=== PATIENT | female | born 2000 | race Caucasian/White ===

== ENCOUNTER → 2023-03-05 | Outpatient (CLI) | payer BC, SELFPAY ==
[2023-03-05 10:18] LABS: hCG Titer Quant., Serum 263 mIU/mL (1-3)
== END | disposition home or self-care (01) ==
LOC: PAVLAB 09:22
PROVIDERS: Referring Provider Obstetrics & Gynecology; Visit Provider Obstetrics & Gynecology
DX: O26.859 Spotting complicating pregnancy, unspecified trimester (principal)
CPT/HCPCS: 36415; 84702; 86850; 86900; 86901

== ENCOUNTER → 2023-03-07 | Outpatient (CLI) | payer BC, SELFPAY ==
[2023-03-07 08:51] LABS: hCG Titer Quant., Serum 589 mIU/mL (1-3)
== END | disposition home or self-care (01) ==
LOC: LAB 07:00
PROVIDERS: PCP Internal Medicine; Referring Provider Obstetrics & Gynecology; Visit Provider Obstetrics & Gynecology
DX: O26.859 Spotting complicating pregnancy, unspecified trimester (principal)
CPT/HCPCS: 36415; 84702

== ENCOUNTER → 2023-04-03 | Outpatient (CLI) | payer BC, SELFPAY | END | disposition home or self-care (01) | LOC: LABSPEC 14:36 | PROVIDERS: PCP Internal Medicine; Referring Provider Advanced Practice Midwife; Visit Provider Advanced Practice Midwife | DX: O09.90 Supervision of high risk pregnancy, unspecified, unspecified trimester (principal); Z3A.00 Weeks of gestation of pregnancy not specified ==

== ENCOUNTER → 2023-04-11 | Outpatient (CLI) | payer BC, SELFPAY ==
[2023-04-11 12:46] LABS: Absolute Lymphocyte Count 1.94 X10^3/uL (0.83-4.51); Absolute Neutrophil Count 6.4 X10^3/uL (2.0-7.7); Basophil# 0.03 X10^3/uL; Basophil% 0.3 % (0-1); Eosinophils% 1.1 % (0-5); Hematocrit 37.8 % (37-47); Hemoglobin 12.2 g/dL (12.0-15.0); Lymphocyte # 1.94 X10^3/ul (0.83-4.51); Lymphocyte % 21.2 % (19-41); Mean Corp Hgb Conc 32.3 g/dL (32-36); Mean Corpuscular Hgb 29.6 pg (27.0-32.0); Mean Corpuscular Volume 91.7 fL (81-99); Mean Platelet Vol. 9.6 fl (6.2-12.0); Monocyte# 0.65 X10^3/uL; Monocyte% 7.1 % (0-10); NRBC Flagged by Analyzer 0 % (0-5); Neutrophil % 69.9 % (47-70); Platelet Count 270 K/mm3 (150-450); RBC Distribution Width CV 13.2 % (11.6-14.6); RBC Distribution Width SD 44.4 fl (35.1-43.9); Red Blood Count 4.12 M/mm3 (4.2-5.4); White Blood Count 9.2 K/mm3 (4.4-11.0)
[2023-04-11 13:02] LABS: Glucose Challenge Gest 1H 50g 130 mg/dL (70-140)
[2023-04-11 13:48] LABS: HIV - WCH Non-Reactive (Nonreactive); Hepatitis B Surface Antigen Non-Reactive (Nonreactive); Hepatitis C Antibody Non-Reactive (Nonreactive); Rubella IgG Reactive (Nonreactive); Syphilis Antibodies Non-reactive
== END | disposition home or self-care (01) ==
LOC: LAB 12:02
PROVIDERS: PCP Internal Medicine; Referring Provider Advanced Practice Midwife; Visit Provider Advanced Practice Midwife
DX: O09.90 Supervision of high risk pregnancy, unspecified, unspecified trimester (principal); Z3A.00 Weeks of gestation of pregnancy not specified
CPT/HCPCS: 82950; 85025; 86703; 86762; 86780; 86803; 86850; 86900; 86901; 87340

== ENCOUNTER → 2023-05-01 | Outpatient (CLI) | payer SELFPAY ==
[2023-05-01 11:32] LABS: NATERA MAILED SPECIMEN
[2023-05-04 06:09] LABS: Chlamydia By Nucleic Acid AMP Negative (Negative); Gonococcus By Nucleic Acid AMP Negative (Negative)
== END | disposition home or self-care (01) ==
PROVIDERS: Registered Nurse; PCP Internal Medicine; Referring Provider Advanced Practice Midwife; Visit Provider Advanced Practice Midwife
DX: O09.90 Supervision of high risk pregnancy, unspecified, unspecified trimester (principal); Z3A.00 Weeks of gestation of pregnancy not specified
CPT/HCPCS: 87086; 87088; 87491; 87591

== ENCOUNTER → 2023-07-30 | Outpatient (CLI) | payer OTHER, SELFPAY ==
[2023-07-30 12:18] LABS: Absolute Lymphocyte Count 1.79 X10^3/uL (0.83-4.51); Absolute Neutrophil Count 7.7 X10^3/uL (2.0-7.7); Basophil# 0.04 X10^3/uL; Basophil% 0.4 % (0-1); Eosinophil# 0.09 X10^3/uL; Eosinophils% 0.8 % (0-5); Hematocrit 37.4 % (37-47); Hemoglobin 11.8 g/dL (12.0-15.0); Lymphocyte # 1.79 X10^3/ul (0.83-4.51); Lymphocyte % 16.9 % (19-41); Mean Corp Hgb Conc 31.6 g/dL (32-36); Mean Corpuscular Hgb 29.1 pg (27.0-32.0); Mean Corpuscular Volume 92.1 fL (81-99); Mean Platelet Vol. 10.3 fl (6.2-12.0); Monocyte# 0.82 X10^3/uL; Monocyte% 7.7 % (0-10); NRBC Flagged by Analyzer 0 % (0-5); Neutrophil % 72.8 % (47-70); Platelet Count 213 K/mm3 (150-450); RBC Distribution Width CV 13.9 % (11.6-14.6); RBC Distribution Width SD 46.8 fl (35.1-43.9); Red Blood Count 4.06 M/mm3 (4.2-5.4); White Blood Count 10.6 K/mm3 (4.4-11.0)
[2023-07-30 12:52] LABS: Glucose Challenge Gest 1H 50g 101 mg/dL (70-140)
[2023-07-30 13:29] LABS: HIV - WCH Non-Reactive (Nonreactive); Syphilis Antibodies Non-reactive
== END | disposition home or self-care (01) ==
LOC: LAB 11:55
PROVIDERS: Referring Provider Obstetrics & Gynecology; Visit Provider Obstetrics & Gynecology
DX: O09.90 Supervision of high risk pregnancy, unspecified, unspecified trimester (principal); Z3A.00 Weeks of gestation of pregnancy not specified; Z13.1 Encounter for screening for diabetes mellitus
CPT/HCPCS: 36415; 82950; 85025; 86703; 86780

== ENCOUNTER → 2023-09-18 | Outpatient (CLI) | payer OTHER, SELFPAY | END | disposition home or self-care (01) | LOC: LABSPEC 13:43 | PROVIDERS: Referring Provider Obstetrics & Gynecology; Visit Provider Obstetrics & Gynecology | DX: O26.899 Other specified pregnancy related conditions, unspecified trimester (principal); R30.0 Dysuria; Z3A.00 Weeks of gestation of pregnancy not specified | CPT/HCPCS: 87086 ==

== ENCOUNTER → 2023-10-16 | Outpatient (CLI) | payer OTHER, SELFPAY ==
--- OUTSIDE RECORDS SUMMARY | 2023-10-16 17:12 | XMS RPT_ITS | CCD ---
Author Name Unknown Address [address] [place] [address] Organization [facility] Care Team Providers Care Carpenter Mold Name Role Phone Cony Jordan MD Primary Care Provider Cony Jordan Attending Unavailable ETHEL MEREDITH Referring Unavailab le NIKKI, CONY Primary Care Unavailable ETHEL MEREDITH Attending Unavailab le NIKKI, CONY Admitting Unavailable NIKKI, CONY Primary Care Unavailable NIKKI, CONY Admitting Unavailable NIKKI, CONY Primary Care Unavailable NIKKI, CONY Primary Care Unavailable MIRANDA LIMON Attending Unavailabl e ETHEL MEREDITH Admitting Unavailab le NIKKI, CONY Primary Care Unavailable ETHEL MEREDITH Admitting Unavailab le ANA, ETHEL MEZA Attending Unavailab le Nikki Cony BRUNER Unavailable NIKKI, CONY Primary Care Unavailable ETHEL MEREDITH Attending Unavailab le NIKKI, CONY Admitting Unavailable NIKKI, CONY Referring Unavailable NIKKI, CONY Primary Care Unavailable NIKKI, CONY Attending Unavailable NIKKI, CONY Primary Care Unavailable NAA HENRY Attending Unavailable NIKKI, CONY Attending Unavailable NIKKI, CONY Primary Care Unavailable ETHEL MEREDITH Attending Unavailab le NIKKI, CONY Primary Care Unavailable NIKKI, CONY Primary Care Unavailable ETHEL MEREDITH Attending Unavailab le NO PRIMARY CARE, Primary Care Unavailable FERNANDA COLINDRES Referring Unavailable YASMIN MONROE Attending Unavailable NikkiCony britton MD Primary Care Provider [phone] NIKKI, CONY Primary Care Unavailable EMPERATRIZ LEE Attending Unavailable Medications Current Medications Medication Drug Class(es) Dates Sig (Normalized) Sig (Original) azithromycin 250 mg oral tablet (1 source) Macrolide Antimicrobial Start: 10-12-2023 End: 10-17-2023 azithromycin (Zithromax Z-Jason) 250 mg tablet Indications: Tonsillitis Take 2 tablets (500 mg) on Day 1, followed by 1 tablet (250 mg) once daily on Days 2 through 5. 6 tablet 0 10/12/2023 10/17/2023 Active dextromethorphan hydrobromide 2 mg/ml / guaiFENesin 20 mg/ml oral solution (1 source) Uncompetitive X-aubfky-N-aspartat e Receptor Antagonist, Sigma-1 Agonist Start: 04-10-2023 dextromethorphan- guaiFENesin 10-100 mg/5 mL Liqd Take as prescribed . 355 mL 0 04/10/2023 Active docusate sodium 100 mg oral capsule (1 source) Start: 12-04-2022 End: 01-03-2023 take 1 capsule by mouth once daily docusate sodium (COLACE) 100 MG capsule Take 1 (one) capsule (100 mg total) by mouth daily Stop taking medication when off pain medication or if having diarrhea . 30 capsule 0 12/04/2022 01/03/2023 Active vitamin vqeobiu-cvzq-primb 27 mg iron- 1 mg tablet (1 source) Start: 02-11-2023 vitamin yidtqhp-wipe-hkcp c 27 mg iron- 1 mg tablet vitamin with Ca-Iron-FA 27-1 mg Tab (1 source) Start: 02-11-2023 vitamin with Ca-Iron-FA 27-1 mg Tab sodium chloride 0.111 meq/ml nasal spray (1 source) Start: 04-10-2023 End: 04-09-2024 sodium chloride (Saline NasaL) 0.65 % nasal spray Instill 1 (one) spray into each nostril as needed for congestion . 15 mL 12 04/10/2023 04/09/2024 Active Completed/Discontinued Medications Medication Drug Class(es) Dates Sig (Normalized) Sig (Original) Ethinyl Estradiol / norgestimate (7 sources) Progestin, Estrogen Start: 09-15-2022 End: 04-10-2023 norgestimate-ethiny l estradioL (ORTHO TRI-CYCLEN,TRINESSA ) 0.18/0.215/0.25 mg-35 mcg (28) per tablet PM . 0 09/15/2022 04/10/2023 Discontinued (Patient Transfer) Problems Active Problems Problem Classification Problem Date Documented Date Episodic/Chronic Acute and chronic tonsillitis (3 sources) Tonsillitis; Translations: [Acute tonsillitis, unspecified] Onset: 10-12-2023 10-12-2023 Episodic Other lower respiratory disease (4 sources) Cough; Translations: [Cough, unspecified type] Onset: 04-10-2023 04-10-2023 Episodic Other nervous system disorders (2 sources) Other acute postprocedural pain; Translations: [Other acute postprocedural pain] Onset: 12-04-2022 Episodic Other nutritional; endocrine; and metabolic disorders (2 sources) Obesity, unspecified; Translations: [Obesity, unspecified] Onset: 11-28-2022 Chronic Other nutritional; endocrine; and metabolic disorders (2 sources) Body mass index 30+ - obesity; Translations: [Obesity, unspecified] Onset: 11-28-2022 11-28-2022 Chronic Residual codes; unclassified (2 sources) Gestation period, 9 weeks; Translations: [9 weeks gestation of ] Onset: 04-10-2023 04-10-2023 Episodic Spondylosis; intervertebral disc disorders; other back problems (1 source) Backache; Translations: [Dorsalgia, unspecified] Episodic Past or Other Problems Problem Classification Problem Date Documented Date Episodic/Chronic Abdominal pain (17 sources) Abdominal pain; Translations: [Unspecified abdominal pain] Onset: 09-19-2022 Episodic Biliary tract disease (12 sources) Biliary colic; Translations: [Calculus of bile duct without cholangitis or cholecystitis without obstruction] Onset: 10-24-2022 Episodic Results Test Name Value Interpretation Reference Range Facil ity Vital Signs Date Time Vital Sign Value Performing Clinician Facility 10-12-2023 09:45-0500 Body height 162.6 cm Emperatriz Lee PROFESSIONAL SERVICES SPECIALIST-WHITE WORK CLEANER Work Phone: [facility] 10-12-2023 09:45-0500 Body mass index (BMI) [Ratio] 42.91 kg/m2 Emperatriz Lee PROFESSIONAL SERVICES SPECIALIST-WHITE WORK CLEANER Work Phone: [facility] 10-12-2023 09:45-0500 Body temperature 97.59 [degF] Emperatriz Lee PROFESSIONAL SERVICES SPECIALIST-WHITE WORK CLEANER Work Phone: [facility] 10-12-2023 09:45-0500 Body weight 113.4 kg Emperatriz Lee PROFESSIONAL SERVICES SPECIALIST-WHITE WORK CLEANER Work Phone: [facility] 10-12-2023 09:45-0500 Diastolic blood pressure 84 mm[Hg] Emperatriz Lee PROFESSIONAL SERVICES SPECIALIST-WHITE WORK CLEANER Work Phone: [facility] 10-12-2023 09:45-0500 Heart rate 91 /min Emperatriz Lee PROFESSIONAL SERVICES SPECIALIST-WHITE WORK CLEANER Work Phone: [facility] 10-12-2023 09:45-0500 Respiratory rate 16 /min Emperatriz Seymour PROFESSIONAL SERVICES SPECIALIST-WHITE WORK CLEANER Work Phone: [facility] 10-12-2023 09:45-0500 SaO2% (BldA) [Mass fraction] 97 % Emperatriz Lee PROFESSIONAL SERVICES SPECIALIST-WHITE WORK CLEANER Work Phone: [facility] 10-12-2023 09:45-0500 Systolic blood pressure 132 mm[Hg] Emperatriz Seymour PROFESSIONAL SERVICES SPECIALIST-WHITE WORK CLEANER Work Phone: [facility] 04-10-2023 13:33-0400 Body height 162.6 cm Cony Jordan MD Work Phone: [facility] 04-10-2023 13:33-0400 Body mass index (BMI) [Ratio] 37.59 kg/m2 Cony Jordan MD Work Phone: [facility] 04-10-2023 13:33-0400 Body temperature 98.6 [degF] Cony Jordan MD Work Phone: [facility] 04-10-2023 13:33-0400 Body weight 99.34 kg Cony Jordan MD Work Phone: [facility] 04-10-2023 13:33-0400 Diastolic blood pressure 84 mm[Hg] Cony Jordan MD Work Phone: [facility] 04-10-2023 13:33-0400 Heart rate 86 /min Cony Jordan MD Work Phone: [facility] 04-10-2023 13:33-0400 Respiratory rate 16 /min Cony Jordan MD Work Phone: [facility] 04-10-2023 13:33-0400 SaO2% (BldA) [Mass fraction] 99 % Cony Jordan MD Work Phone: [facility] 04-10-2023 13:33-0400 Systolic blood pressure 128 mm[Hg] Cony Jordan MD Work Phone: [facility] 12-19-2022 08:33-0500 Body mass index (BMI) [Ratio] 35.87 kg/m2 Ethel Meredith MD Work Phone: [facility] 12-19-2022 08:33-0500 Body weight 94.8 kg Ethel Meredith MD Work Phone: [facility] 12-19-2022 08:33-0500 Diastolic blood pressure 88 mm[Hg] Ethel Meredith MD Work Phone: [facility] 12-19-2022 08:33-0500 Heart rate 105 /min Ethel Meredith MD Work Phone: [facility] 12-19-2022 08:33-0500 Systolic blood pressure 131 mm[Hg] Ethel Meredith MD Work Phone: [facility] 11-21-2022 08:06-0500 Body mass index (BMI) [Ratio] 34.28 kg/m2 Ethel Meredith MD Work Phone: [facility] 11-21-2022 08:06-0500 Body weight 93.44 kg tEhel Meredith MD Work Phone: [facility] 11-21-2022 08:06-0500 Diastolic blood pressure 86 mm[Hg] Ethel Meredith MD Work Phone: [facility] 11-21-2022 08:06-0500 Heart rate 90 /min Ethel Meredith MD Work Phone: [facility] 11-21-2022 08:06-0500 Systolic blood pressure 129 mm[Hg] Ethel Meredith MD Work Phone: [facility] 10-24-2022 09:23-0500 Body height 165.1 cm Ethel Meredith MD Work Phone: [facility] 10-24-2022 09:23-0500 Body mass index (BMI) [Ratio] 34.28 kg/m2 Ethel Meredith MD Work Phone: [facility] 10-24-2022 09:23-0500 Body weight 93.44 kg Ethel Meredith MD Work Phone: [facility] 10-24-2022 09:23-0500 Diastolic blood pressure 88 mm[Hg] Ethel Meredith MD Work Phone: [facility] 10-24-2022 09:23-0500 Heart rate 83 /min Ethel Meredith MD Work Phone: [facility] 10-24-2022 09:23-0500 Respiratory rate 14 /min Ethel Meredith MD Work Phone: [facility] 10-24-2022 09:23-0500 SaO2% (BldA) [Mass fraction] 98 % Ethel Meredith MD Work Phone: [facility] 10-24-2022 09:23-0500 Systolic blood pressure 134 mm[Hg] Ethel Meredith MD Work Phone: [facility] 09-19-2022 08:48-0500 Body height 162.6 cm Cony Jordan MD Work Phone: [facility] 09-19-2022 08:48-0500 Body mass index (BMI) [Ratio] 35.02 kg/m2 Cony Jordan MD Work Phone: [facility] 09-19-2022 08:48-0500 Body temperature 98.71 [degF] Cony Jordan MD Work Phone: [facility] 09-19-2022 08:48-0500 Body weight 92.53 kg Cony Jordan MD Work Phone: [facility] 09-19-2022 08:48-0500 Diastolic blood pressure 83 mm[Hg] Cony Jordan MD Work Phone: [facility] 09-19-2022 08:48-0500 Heart rate 89 /min Cony Jordan MD Work Phone: [facility] 09-19-2022 08:48-0500 Respiratory rate 16 /min Cony Jordan MD Work Phone: [facility] 09-19-2022 08:48-0500 SaO2% (BldA) [Mass fraction] 97 % Cony Jordan MD Work Phone: [facility] 09-19-2022 08:48-0500 Systolic blood pressure 117 mm[Hg] Cony Jordan MD Work Phone: [facility] Encounters Encounter Date Encounter Type Care Provider Facility Start: 10-12-2023 End: 10-12-2023 ambulatory CONY JORDAN [facility] Start: 10-12-2023 End: 10-12-2023 Patient encounter procedure Emperatriz Lee PROFESSIONAL SERVICES SPECIALIST-WHITE WORK CLEANER Work Phone: [facility] Procedures Date Procedure Procedure Detail Performing Clinician Start: 09-19-2022 Adult depression screening assessment Cony Jordan MD Work Phone: History of cholecystectomy S/P cholecyste ctomy Ethel Meredith MD Work Phone: Plan of Treatment Date Care Activity Detail Author Start: 2048 Zoster Vaccines (1 of 2) Zoster Vaccines (1 of 2) [facility] Start: 08-21-2033 DTaP/Tdap/Td Vaccines (2 - Td or Tdap) DTaP/Tdap/Td Vaccines (2 - Td or Tdap) [facility] Start: 09-19-2023 Depression screening using PHQ-9 (Patient Health Questionnaire 9) score Depression Screening (PHQ-2/9) [facility] Start: 06-14-2023 Influenza vaccination [facility] Start: 12-04-2022 End: 12-04-2022 Admission to same day surgery center 12/04/2022 Surgery Ethel Meredith MD [address] [address] CHOLECYSTECTOMY ROBOTIC [facility] Payers Date Payer Category Payer Unknown [id number] 2022 Unknown [id number] 2022 Unknown [id number] 2000 Unknown [id number] 2.16.8 [id number] 1998 Unknown [id number] 2.16. [id number] 1998 Unknown [id number] 2.16. [id number] 1998 Unknown [id number] 2.16. [id number] 1998 Unknown [id number] 2.16. [id number] 1998 Unknown [id number] 2.16. [id number] 1998 Unknown [id number] 2.16. [id number] 1998 Unknown [id number] 2.16. [id number] 1998 Unknown [id number] 2.16. [id number] 1998 Unknown [id number] 2.16. [id number] 1998 Unknown [id number] 2.16. [id number] 1998 Unknown [id number] 2.16. [id number] 1998 Unknown [id number] 2.16. [id number] 1998 Unknown [id number] 2.16.84 [id number] Social History Date Type Detail Facility Start: 09-19-2022 End: 10-12-2023 Tobacco smoking status NHIS Never smoked tobacco [facility] Start: 09-19-2022 End: 10-12-2023 Tobacco use and exposure Smokeless tobacco non-user [facility] Start: 09-19-2022 End: 04-10-2023 Alcohol intake Current drinker of alcohol (finding) [facility] Start: 09-19-2022 Alcohol Comment social [facility] Start: 2000 Sex Assigned At Not on file [facility] Start: 09-09-2022 End: 10-12-2023 Exposure to SARS-CoV-2 (event) Not sure [facility] Start: 11-28-2022 Alcohol Comment once every oth er weekend [facility] Start: 09-19-2022 End: 12-19-2022 History of Social function [facility] Start: 09-19-2022 End: 12-19-2022 Tobacco use panel [facility] Adult Depression Screening Assessment 0 [facility] Start: 09-19-2022 Gender identity Identifies as female gender (finding) [facility] Start: 09-19-2022 Sexual orientation Heterosexual (fin ding) [facility] Start: 10-12-2023 Alcohol intake Lifetime non-d juan r (finding) [facility] Work Phone: NEGATED: Highlighted rowStart: JACOBOF History of tobacco use Passive smoker [facility] Clinical Notes 09-19-2022 to 10-12-2023 Emperatriz Lee APRN-JOAN - 10/12/2023 8:40 AM ESTAssessment & Plan Note - Cony Jordan MD - 04/10/2023 3:51 PM EDTAssessment & Plan Note - Cony Jordan MD - 04/10/2023 3:51 PM EDT Note Date & Type Note Facility 10-12-2023 History of Present illness Narrative 22 y.o. female presents for evaluation of throat swelling and pain. 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 Pain is exacerbated by oral intake. Pt did not attempt any OTC meds or conservative measures. No fever, chills, vomiting, URI symptoms, or other constitutional S/S. 36 weeks . No other complaints. Vitals: 10/12/23 0945 BP: 132/84 Pulse: 91 Resp: 16 Temp: 36.4 C (97.6 F) SpO2: 97% No Known Allergies Medication Documentation Review Audit Reviewed by Jessica Tena MA (Returns Clerk) on 10/12/23 at 0949 Medication Order Taking? Sig Documenting Provider Last Dose Status vitamin dmcqtnq-gpzr-lwriu 27 mg iron- 1 mg tablet [id number] Yes Historical Provider, Taking Active History reviewed. No pertinent past medical history. Past Surgical History: Procedure Laterality Date CHOLECYSTECTOMY ROS See HPI Physical Exam Vitals and nursing note reviewed. Constitutional: General: She is not in acute distress. Appearance: She is not ill-appearing (mildly). HENT: Head: Normocephalic and atraumatic. Right Ear: Tympanic membrane and ear canal normal. Left Ear: Tympanic membrane and ear canal normal. Nose: Congestion present. Mouth/Throat: Mouth: Mucous membranes are moist. Pharynx: Posterior oropharyngeal erythema present. No oropharyngeal exudate. Comments: No tonsillar edema Eyes: Extraocular Movements: Extraocular movements intact. Conjunctiva/sclera: Conjunctivae normal. Pupils: Pupils are equal, round, and reactive to light. Cardiovascular: Rate and Rhythm: Normal rate and regular rhythm. Pulmonary: Effort: Pulmonary effort is normal. Breath sounds: Normal breath sounds. Lymphadenopathy: Cervical: Cervical adenopathy present. Skin: General: Skin is warm and dry. Capillary Refill: Capillary refill takes less than 2 seconds. Neurological: General: No focal deficit present. Mental Status: She is alert and oriented to person, place, and time. Psychiatric: Mood and Affect: Mood normal. Behavior: Behavior normal. Assessment/Plan/MDM Jerome was seen today for uri. Diagnoses and all orders for this visit: Tonsillitis (Primary) - azithromycin (Zithromax Z-Jason) 250 mg tablet; Take 2 tablets (500 mg) on Day 1, followed by 1 tablet (250 mg) once daily on Days 2 through 5. Encouraged pt to use otc cold remedies PRN, push by mouth fluids and rest. Patient's clinical presentation is otherwise unremarkable at this time. Patient is discharged with instructions to follow-up with primary care or seek emergency medical attention for worsening symptoms or any new concerns. Emperatriz Lee CNP [facility] [phone] documented in this encounter [facility] Work Phone: 04-10-2023 Evaluation + Plan note Associated Problem(s): 9 weeks gestation of Taking pre natals hsa cobbler sole appt set up [facility] 04-10-2023 Miscellaneous Notes Associated Problem(s): 9 weeks gestation of Taking pre natals hsa cobbler sole appt set up Associated Problem(s): Cough Pt reassured -taking vitamin -advised pt to take cough syrup as needed and use saline nasal spray Drink warm liquids like tea with honey, soups and take warm steam showers to help soothe your symptoms Hydration, rest promoted. documented in this encounter [facility] 04-10-2023 Evaluation + Plan note Associated Problem(s): Cough Pt reassured -taking vitamin -advised pt to take cough syrup as needed and use saline nasal spray Drink warm liquids like tea with honey, soups and take warm steam showers to help soothe your symptoms Hydration, rest promoted. [facility] 04-10-2023 History of Present illness Narrative Assessment Assessment/Plan: Problem List Cough Pt reassured -taking vitamin -advised pt to take cough syrup as needed and use saline nasal spray Drink warm liquids like tea with honey, soups and take warm steam showers to help soothe your symptoms Hydration, rest promoted. 9 weeks gestation of Taking pre natals hsa cobbler sole appt set up Return in about 1 year (around 04/10/2024) for Annual Exam. For any new medications prescribed today, patient was educated about indications for the medication, how to take the medication and potential side effects of the medications. Cony Jordan MD [facility] [address] [facility] [address] [facility] [id number] Dept: [phone] Subjective Chief Complaint Patient presents with Cough HPI Jerome Grady is a 22 y.o. female presenting for cough. She is 9 weeks Cough: This is a new complaint. The current episode started in the past 5 day(s). The problem has has moderately improved. Associated symptoms include: cough, sinus drainage and felt like she could not catch her breath. She states yesterday was the worst day for coughing however today it has significantly improved. Has been taking robitussin only. No fever, chills, sputum production, sinus pressure/pain All pertinent positives and negatives are documented in ROS Patient's medications, allergies, past medical history, surgical history history, family history, social history were reviewed. Spent more than 10 minutes with patient, coordinating patient care, including reviewing charts and counseling patient. Past Medical History: Diagnosis Date Abdominal pain Obesity Past Surgical History: Procedure Laterality Date CHOLECYSTECTOMY ROBOTIC XI N/A 12/04/2022 Procedure: CHOLECYSTECTOMY ROBOTIC XI; Surgeon: Ethel Meredith MD; Location: Main OR; Service: [employer] Family History Problem Relation Age of Onset No Known Problems Mother Diabetes Father No Known Problems Sister No Known Problems Brother Social History Tobacco Use Smoking status: Never Passive exposure: Never Smokeless tobacco: Never Vaping Use Vaping Use: Never used Substance Use Topics Alcohol use: Yes Comment: once every other weekend Drug use: Never No Known Allergies Patient's Medications New Prescriptions DEXTROMETHORPHAN-GUAIFENESIN 10-100 MG/5 ML LIQD Take as prescribed . SODIUM CHLORIDE (SALINE NASAL) 0.65 % NASAL SPRAY Instill 1 (one) spray into each nostril as needed for congestion . Previous Medications VITAMIN WITH CA-IRON-FA 27-1 MG TAB Modified Medications No medications on file Discontinued Medications NORGESTIMATE-ETHINYL ESTRADIOL (ORTHO TRI-CYCLEN,TRINESSA) 0.18/0.215/0.25 MG-35 MCG (28) PER TABLET PM . Objective Vitals: 04/10/23 1333 BP: 128/84 BP Location: Right arm Patient Position: Sitting BP Cuff Size: X-large Adult Pulse: 86 Resp: 16 Temp: 98.6 F (37 C) TempSrc: Temporal SpO2: 99% Weight: 99.3 kg (219 lb) Height: 5' 4 Estimated body mass index is 37.59 kg/m as calculated from the following: Height as of this encounter: 5' 4 . Weight as of this encounter: 99.3 kg (219 lb). Physical Exam Vitals and nursing note reviewed. Constitutional: Appearance: Normal appearance. She is obese. HENT: Head: Normocephalic and atraumatic. Mouth/Throat: Mouth: Mucous membranes are moist. Eyes: Extraocular Movements: Extraocular movements intact. Conjunctiva/sclera: Conjunctivae normal. Pupils: Pupils are equal, round, and reactive to light. Cardiovascular: Rate and Rhythm: Normal rate and regular rhythm. Pulmonary: Effort: Pulmonary effort is normal. Breath sounds: Normal breath sounds. Abdominal: General: Abdomen is flat. Bowel sounds are normal. Palpations: Abdomen is soft. Tenderness: There is no abdominal tenderness. There is no right CVA tenderness or left CVA tenderness. Negative signs include Boothe's sign. Skin: General: Skin is warm. Neurological: General: No focal deficit present. Mental Status: She is alert and oriented to person, place, and time. Mental status is at baseline. Psychiatric: Attention and Perception: Attention and perception normal. Mood and Affect: Mood normal. Speech: Speech normal. Behavior: Behavior normal. Thought Content: Thought content normal. Cognition and Memory: Cognition and memory normal. Judgment: Judgment normal. PHQ9: SHIRA-7 Tobacco Counseling: Counseling given: Not Answered documented in this encounter [facility] 12-19-2022 History of Present illness Narrative [facility] PATIENT: Jerome Grady DATE / TIME: 12/19/22 9:11 AM POS: Office AGE: 21 y.o. : 2000 RACE: [1] SEX: female PCP: Cony Jordan MD REFERRAL: No ref. provider found TOS: SUBJECTIVE: Pain significantly better this week. Tolerating regular diet. Bowel movements have returned to normal. OBJECTIVE: Vitals: 12/19/22 0833 BP: 131/88 Pulse: (!) 105 Weight: 94.8 kg (209 lb) NAD A&O NLR Abd: soft, nt, nd Incisions CDI PATHOLOGY: Final Diagnosis A. Gallbladder, cholecystectomy: Cholesterolosis. ASSESSMENT: Jerome Grady is a 21 y.o. female status post robotic cholecystectomy 12/04/2022 PLAN: Resume normal activity. Follow-up as needed. documented in this encounter [facility] 11-21-2022 History of Present illness Narrative [facility] PATIENT: Jerome Grady DATE / TIME: 11/21/22 1:19 PM POS: Office AGE: 21 y.o. : 2000 RACE: [1] SEX: female PCP: Cony Jordan MD REFERRAL: No ref. provider found HISTORY OF PRESENT ILLNESS CC / Reason for Consult: HPI: Jerome returns for follow-up. She has had some mild discomfort off and on; bilateral and mostly posterior. She is tolerating a regular diet. HPI 10/24/22: Jerome Grady is a 21 y.o. female with post prandial abdominal pain. She reports that she had severe pain for 4 days off and on around the time of Thanksgi. Her symptoms improved, but again recurred around Nils. It seemed to be exacerbated by PO intake. Initially it was epigastric, but later seemed to be more in the LUQ radiating to the back. No urinary symptoms. She did have nausea but no emesis. BM have been normal with only mild constipation. She is not taking any NSAIDs consistently. Her father has a history of kidney stones. PAST MEDICAL / SURGICAL HISTORY Past Medical History: Diagnosis Date Abdominal pain Obesity History reviewed. No pertinent surgical history. FAMILY HISTORY Family History Problem Relation Age of Onset Diabetes Father SOCIAL HISTORY Data Unavailable Social History Tobacco Use Smoking Status Never Passive exposure: Never Smokeless Tobacco Never Social History Substance and Sexual Activity Alcohol Use Yes Comment: social Social History Substance and Sexual Activity Drug Use Never Occupation: Data Unavailable Marital status: Support person (if other than spouse): Extended Emergency Contact Information Primary Emergency Contact: Harley Grady Address: [address] [place] [address] of [place] Relation: Spouse MEDICATIONS: Outpatient Medications as of 11/21/2022 Medication Sig norgestimate-ethinyl estradioL (ORTHO TRI-CYCLEN,TRINESSA) 0.18/0.215/0.25 mg-35 mcg (28) per tablet ALLERGIES: No Known Allergies PHYSICAL EXAM Vitals: 11/21/22 0806 BP: 129/86 Pulse: 90 Weight: 93.4 kg (206 lb) Body mass index is 34.28 kg/m . Physical Exam Constitutional: Well-developed and well-nourished. No acute distress. HENT: AT / NC, EOM normal, no icterus, pupils equal Neck: Normal range of motion. Cardiovascular: Normal rate and regular rhythm. Pulmonary/Chest: Effort normal. No respiratory distress. No wheezes, rales or rhonchi. Abdominal: Soft. No distension. No tenderness. Musculoskeletal: Normal range of motion. No deformity. No edema. Neurological: Alert and oriented. No cranial nerve deficit. Psychiatric: Normal mood and affect. Behavior is normal. Skin: Skin is warm and dry. LABS / X-RAYS Details: HIDA SCAN WITH GALLBLADDER EJECTION FRACTION HISTORY: Abdominal Pain. COMPARISON: None. METHOD: Following IV injection of 4.4 mCi of [id number], anterior imaging of the abdomen was acquired for 60 minutes. After the gallbladder was visualized, the gallbladder ejection fraction was calculated. FINDINGS: There is satisfactory uptake of radiopharmaceutical by the liver. The gallbladder, bile duct, and bowel are seen in the expected period of time and sequence. The gallbladder ejection fraction is decreased at 33%. IMPRESSION: Findings suggestive of chronic cholecystitis. ASSESSMENT AND PLAN: Jerome Grady is a 21 y.o. female with chronic cholecystitis. The risks, benefits, and alternatives to robotic assisted cholecystectomy were discussed and she wishes to proceed. Thank you for the privilege of allowing me to participate in the care of Jerome Grady. documented in this encounter [facility] 10-24-2022 History of Present illness Narrative [facility] PATIENT: Jerome Grady DATE / TIME: 10/24/22 9:35 AM POS: Office AGE: 21 y.o. : 2000 RACE: [1] SEX: female PCP: Cony Jordan MD REFERRAL: Cony Jordan MD HISTORY OF PRESENT ILLNESS CC / Reason for Consult: biliary colic HPI: Jerome Grady is a 21 y.o. female with post prandial abdominal pain. She reports that she had severe pain for 4 days off and on around the time of . Her symptoms improved, but again recurred around [place]. It seemed to be exacerbated by PO intake. Initially it was epigastric, but later seemed to be more in the LUQ radiating to the back. No urinary symptoms. She did have nausea but no emesis. BM have been normal with only mild constipation. She is not taking any NSAIDs consistently. Her father has a history of kidney stones. PAST MEDICAL / SURGICAL HISTORY Past Medical History: Diagnosis Date Obesity History reviewed. No pertinent surgical history. FAMILY HISTORY Family History Problem Relation Age of Onset Diabetes Father SOCIAL HISTORY Data Unavailable Social History Tobacco Use Smoking Status Never Passive exposure: Never Smokeless Tobacco Never Social History Substance and Sexual Activity Alcohol Use Yes Comment: social Social History Substance and Sexual Activity Drug Use Never Occupation: [employer] Marital status: Support person (if other than spouse): Extended Emergency Contact Information Primary Emergency Contact: Harley Grady Address: [address] [place] [address] of [place] [address] Relation: Spouse MEDICATIONS: Outpatient Medications as of 10/24/2022 Medication Sig norgestimate-ethinyl estradioL (ORTHO TRI-CYCLEN,TRINESSA) 0.18/0.215/0.25 mg-35 mcg (28) per tablet [DISCONTINUED] famotidine (PEPCID) 20 MG tablet Take 1 (one) tablet (20 mg total) by mouth 2 (two) times a day . ALLERGIES: No Known Allergies REVIEW OF SYSTEMS Pertinent positives and negatives are listed in HPI, PMSH, SH, ALL above and in Details below. The following systems were reviewed: [x] Const (fevers, chills, wt. loss, fatigue) [x] CV (HTN, CP, PONCE, edema, DVT) [x] Resp (SOB, pleurisy, asthma, apnea) [x] GI (N, V, D, C, M, abd pain, appetite) [x] Musc (back pain, joint stiffness, gout) [x] Neuro (seizures, syncope, paralysis) [x] Psych (depression, anxiety) [x] Endo (hot/cold intol, polyuria[DM]) [x] Hem/Lymph (Anemia, LA, bleeding) [x] Allerg/Immun (seasonal, immuniz) [x] Eyes (diplopia, cataracts) [x] ENT/mouth (dysphagia, epistaxis) [x] (dysuria, hematuria) [x] Skin/Breast (moles, rash, lumps, nipple changes) [x] Able to walk up a flight of steps without difficulty Details: PHYSICAL EXAM Vitals: 10/24/22 0923 BP: 134/88 Pulse: 83 Resp: 14 SpO2: 98% Weight: 93.4 kg (206 lb) Height: 5' 5 Body mass index is 34.28 kg/m . Physical Exam Constitutional: Well-developed and well-nourished. No acute distress. HENT: AT / NC, EOM normal, no icterus, pupils equal Neck: Normal range of motion. Cardiovascular: Normal rate and regular rhythm. Pulmonary/Chest: Effort normal. No respiratory distress. No wheezes, rales or rhonchi. Abdominal: Soft. No distension. No tenderness. Musculoskeletal: Normal range of motion. No deformity. No edema. Neurological: Alert and oriented. No cranial nerve deficit. Psychiatric: Normal mood and affect. Behavior is normal. Skin: Skin is warm and dry. LABS / X-RAYS Details: US RUQ: normal (no cholelithiasis, CBD 2mm). Pancrease difficult to visualize due to bowel gas WBC: 6.44 (CBC normal) LFTs WNL t bili 0.2 Lipase: 599, 347 abylase: 42 ASSESSMENT AND PLAN: Jerome Grady is a 21 y.o. female with post prandial upper quadrant pain. RUQ US and labwork were essentially unremarkable. HIDA with EF ordered. Follow-up in office after imaging. If unremarkable, with consider EGD and CT scan vs renal US. Patient encouraged to take pepcid for now as prescribed. Thank you for the privilege of allowing me to participate in the care of Jerome Grady. documented in this encounter [facility] 09-19-2022 Evaluation + Plan note Associated Problem(s): Abdominal pain To help manage your GERD symptoms it is important to maintain a healthy weight, even losing 5-10 pounds can make a huge difference with acid reflux. Avoid laying down after meals. Avoid eating late at night or three hours prior to bedtime. Elevate the head of your bed when sleeping (put pillow under your shoulders blades). Avoid wearing tight fitting clothes. Avoid eating foods that can irritate your stomach such as; alcohol, fatty/greasy foods, chocolate, caffeine, mint, spicy foods, citrus. Eat smaller meals. Concern for choledocolithiasis vs gerd Will order lipase and US [facility] 09-19-2022 Instructions Cony Jordan MD - 09/19/2022 9:08 AM EST Images from the original note were not included. Gastroesophageal Reflux Disease (GERD): Care Instructions Overview Gastroesophageal reflux disease (GERD) is the backward flow of stomach acid into the esophagus. The esophagus is the tube that leads from your throat to your stomach. A one-way valve prevents the stomach acid from backing up into this tube. But when you have GERD, this valve does not close tightly enough. This can also cause pain and swelling in your esophagus. (This is called esophagitis.) If you have mild GERD symptoms including heartburn, you may be able to control the problem with antacids or rggj-qts-zrooqhd medicine. You can also make lifestyle changes to help reduce your symptoms. These include changing your diet and eating habits, such as not eating late at night and losing weight. Follow-up care is a lou part of your treatment and safety. Be sure to make and go to all appointments, and call your doctor if you are having problems. It's also a good idea to know your test results and keep a list of the medicines you take. How can you care for yourself at home? Take your medicines exactly as prescribed. Call your doctor if you think you are having a problem with your medicine. Your doctor may recommend otpx-pig-qmajlxx medicine. For mild or occasional indigestion, antacids, such as Tums, Gaviscon, Mylanta, or Maalox, may help. Your doctor also may recommend mrkn-wxb-vcmyjmu acid reducers, such as famotidine (Pepcid AC), cimetidine (Tagamet HB), or omeprazole (Prilosec). Read and follow all instructions on the label. If you use these medicines often, talk with your doctor. Change your eating habits. It's best to eat several small meals instead of two or three large meals. After you eat, wait 2 to 3 hours before you lie down. Avoid foods that make your symptoms worse. These may include chocolate, mint, alcohol, pepper, spicy foods, high-fat foods, or drinks with caffeine in them, such as tea, coffee, feroz, or energy drinks. If your symptoms are worse after you eat a certain food, you may want to stop eating it to see if your symptoms get better. Do not smoke or chew tobacco. Smoking can make GERD worse. If you need help quitting, talk to your doctor about stop-smoking programs and medicines. These can increase your chances of quitting for good. If you have GERD symptoms at night, raise the head of your bed 6 to 8 inches by putting the frame on blocks or placing a foam wedge under the head of your mattress. (Adding extra pillows does not work.) Do not wear tight clothing around your middle. Lose weight if you need to. Losing just 5 to 10 pounds can help. When should you call for help? Call your doctor now or seek immediate medical care if: You have new or different belly pain. Your stools are black and tarlike or have streaks of blood. Watch closely for changes in your health, and be sure to contact your doctor if: Your symptoms have not improved after 2 days. Food seems to catch in your throat or chest. Where can you learn more? Log into your personal health record on [email or web address] and enter T927 in the Education box to learn more about Gastroesophageal Reflux Disease (GERD): Care Instructions. Current as of: March 19, 2022 Content Version: 13.4 [employer]. Care instructions adapted under license by your healthcare professional. If you have questions about a medical condition or this instruction, always ask your healthcare professional. [employer] disclaims any warranty or liability for your use of this information. documented in this encounter [facility] 09-19-2022 Miscellaneous Notes Associated Problem(s): Abdominal pain To help manage your GERD symptoms it is important to maintain a healthy weight, even losing 5-10 pounds can make a huge difference with acid reflux. Avoid laying down after meals. Avoid eating late at night or three hours prior to bedtime. Elevate the head of your bed when sleeping (put pillow under your shoulders blades). Avoid wearing tight fitting clothes. Avoid eating foods that can irritate your stomach such as; alcohol, fatty/greasy foods, chocolate, caffeine, mint, spicy foods, citrus. Eat smaller meals. Concern for choledocolithiasis vs gerd Will order lipase and US documented in this encounter [facility] 09-19-2022 History of Present illness Narrative Assessment Assessment/Plan: Problem List Abdominal pain To help manage your GERD symptoms it is important to maintain a healthy weight, even losing 5-10 pounds can make a huge difference with acid reflux. Avoid laying down after meals. Avoid eating late at night or three hours prior to bedtime. Elevate the head of your bed when sleeping (put pillow under your shoulders blades). Avoid wearing tight fitting clothes. Avoid eating foods that can irritate your stomach such as; alcohol, fatty/greasy foods, chocolate, caffeine, mint, spicy foods, citrus. Eat smaller meals. Concern for choledocolithiasis vs gerd Will order lipase and US Relevant Orders Lipase Amylase US Abdomen Limited Study CBC and Differential Comprehensive Metabolic Panel No follow-ups on file. For any new medications prescribed today, patient was educated about indications for the medication, how to take the medication and potential side effects of the medications. Cony Jordan MD [facility] [place] [address] [facility] [address] [facility] [address] Dept: [phone] Subjective Chief Complaint Patient presents with Abdominal Pain Pain in upper abd after eating pain in back as well HPI Jerome Grady is a 21 y.o. female presenting as a new patient to the clinic today. Abdominal pain-patient states this began in May 2020. States that initially it was more right upper quadrant that lasted approximately 3 to 4 hours. It was very sharp and she felt bloated at the time. Since then she has had 2 more episodes mainly occurring after eating. She states after eating at [employer] on night the pain had started and the pain was 7 out of 10. She is not sure of the type of meal that she ate for the second time. She denies any nausea, vomiting, sore throat, water brash. She denies any symptoms occurring after eating regular foods. She denied having any fevers or chills during those events. She does state the pain will occasionally radiate to her back and shoulder. She has not taken any medications for this except ibuprofen. All pertinent positives and negatives are documented in ROS Patient's medications, allergies, past medical history, surgical history history, family history, social history were reviewed. Spent more than 20 minutes with patient, coordinating patient care, including reviewing charts and counseling patient. History reviewed. No pertinent past medical history. History reviewed. No pertinent surgical history. Family History Problem Relation Age of Onset Diabetes Father Social History Tobacco Use Smoking status: Never Passive exposure: Never Smokeless tobacco: Never Vaping Use Vaping Use: Never used Substance Use Topics Alcohol use: Yes Comment: social Drug use: Never No Known Allergies Patient's Medications New Prescriptions FAMOTIDINE (PEPCID) 20 MG TABLET Take 1 (one) tablet (20 mg total) by mouth 2 (two) times a day . Previous Medications NORGESTIMATE-ETHINYL ESTRADIOL (ORTHO TRI-CYCLEN,TRINESSA) 0.18/0.215/0.25 MG-35 MCG (28) PER TABLET Modified Medications No medications on file Discontinued Medications No medications on file Objective Vitals: 09/19/22 0848 BP: 117/83 BP Location: Left arm Patient Position: Sitting BP Cuff Size: X-large Adult Pulse: 89 Resp: 16 Temp: 98.7 F (37.1 C) TempSrc: Temporal SpO2: 97% Weight: 92.5 kg (204 lb) Height: 5' 4 Estimated body mass index is 35.02 kg/m as calculated from the following: Height as of this encounter: 5' 4 . Weight as of this encounter: 92.5 kg (204 lb). Physical Exam Vitals and nursing note reviewed. Constitutional: Appearance: Normal appearance. She is obese. HENT: Head: Normocephalic and atraumatic. Mouth/Throat: Mouth: Mucous membranes are moist. Eyes: Extraocular Movements: Extraocular movements intact. Conjunctiva/sclera: Conjunctivae normal. Pupils: Pupils are equal, round, and reactive to light. Cardiovascular: Rate and Rhythm: Normal rate and regular rhythm. Pulmonary: Effort: Pulmonary effort is normal. Breath sounds: Normal breath sounds. Abdominal: General: Abdomen is flat. Bowel sounds are normal. Palpations: Abdomen is soft. Tenderness: There is no abdominal tenderness. There is no right CVA tenderness or left CVA tenderness. Negative signs include Boothe's sign. Skin: General: Skin is warm. Neurological: General: No focal deficit present. Mental Status: She is alert and oriented to person, place, and time. Mental status is at baseline. Psychiatric: Attention and Perception: Attention and perception normal. Mood and Affect: Mood normal. Speech: Speech normal. Behavior: Behavior normal. Thought Content: Thought content normal. Cognition and Memory: Cognition and memory normal. Judgment: Judgment normal. PHQ9: Over the last 2 weeks, how often have you been bothered by any of the following problems? Little interest or pleasure in doing things: Not at all Feeling down, depressed, or hopeless: Not at all PHQ-2 Total Score: 0 Trouble falling or staying asleep, or sleeping too much: Not at all Feeling tired or having little energy: Not at all Poor appetite or overeating: Not at all Feeling bad about yourself - or that you are a failure or have let yourself or your family down: Not at all Trouble concentrating on things, such as reading the newspaper or watching television: Not at all Moving or speaking so slowly that other people could have noticed. Or the opposite - being so fidgety or restless that you have been moving around a lot more than usual: Not at all Thoughts that you would be better off , or of hurting yourself in some way: Not at all PHQ-9 Total Score: 0 If you checked off any problems, how difficult have these problems made it for you to do your work, take care of things at home, or get along with other people?: Not difficult at all SHIRA-7 Tobacco Counseling: Counseling given: Not Answered documented in this encounter [facility] Biliary colic- Primary Calculus of gallbladder without mention of cholecystitis or obstruction [facility] Diagnosis Abdominal pain, unspecified abdominal location- Primary [facility] Diagnosis Back pain, unspecified back location, unspecified back pain laterality, unspecified chronicity- Primary Biliary colic Calculus of gallbladder without mention of cholecystitis or obstruction [facility] Diagnosis Chronic cholecystitis- Primary Chronic cholecystitis- Primary Chronic cholecystitis [facility] Diagnosis S/P cholecystectomy- Primary Other acquired absence of organ [facility] Diagnosis Cough, unspecified type 9 weeks gestation of [facility] Diagnosis Tonsillitis- Primary Acute tonsillitis documented in this encounter [facility] Work Phone: Reason for Referral Specialty Diagnoses / Procedures Referred By Contac t Referred To Contact Diagnoses Abdominal pain, unspecified abdominal location Procedures US Abdomen Limited Study Cony Jordan MD [id number] [place] [address] Phone: [phone] Referral ID Status Reason Start Date Expiration Date Visits Requested Visits Authorized [id number] Authorized Patient Preference 09/19/2022 09/19/2023 1 1 Specialty Diagnoses / Procedures Referred By Contac t Referred To Contact General Surgery Diagnoses Biliary colic Cony Jordan MD [address] [place] [address] Ethel Meredith MD [address] [place] [address] Referral ID Status Reason Start Date Expiration Date V isits Requested Visits Authorized [id number] Authorized 09/20/2022 09/20/2023 1 1 Specialty Diagnoses / Procedures Referred By Contac t Referred To Contact Radiology Diagnoses Biliary colic Procedures NM Hepatobiliary With Ejection Fraction Ethel Meredith MD [address] [place] [address] Referral ID Status Reason Start Date Expiration Date V isits Requested Visits Authorized [id number] Authorized 10/24/2022 10/24/2023 4 4 Summary Purpose Family History No Family History Records FoundNo Family History Records FoundNo Family History Records FoundNo Family History Records FoundNo Family History Records Found Advance Directives No Advanced Directives Records FoundNo Advanced Directives Records FoundNo Advanced Directives Records FoundNo Advanced Directives Records FoundNo Advanced Directives Records Found Additional Source Comments Reason for Visit (unrecogniz ed section and content) Reason Comments Consult Biliary colic, Specialty Diagnoses / Procedures Referred By Contac t Referred To Contact General Surgery Diagnoses Biliary colic Cony Jordan MD [id number] Ethel Meredith MD [address] [address] Referral ID Status Reason Start Date Expiration Date Visits Re quested Visits Authorized [id number] Closed 09/20/2022 09/20/2023 1 1 Reason Comments Follow-up HIDA scan Reason Comments Follow-up cholecystectomy Reason Comments Cough Reason Comments URI SORE THROAT, HEADACH E, CONGESTION X 4 DAYS 36 WEEKS Care Teams (unrecognized sec tion and content) 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 Specialty Start Date End Date Cony Jordan MD [phone] PCP - General Internal Medicine 09/19/22 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 Specialty Start Date End Date Cony Jordan MD [address] [place], [place] [id number] PCP - General Internal Medicine 09/19/22 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 Specialty Start Date End Date Cony Jordan MD [address] [place], [place] [phone] PCP - General Internal Medicine 09/19/22 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 Specialty Start Date End Date Cony Jordan MD [address] [place] [address] PCP - General Internal Medicine 09/19/22 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 Specialty Start Date End Date Cony oJrdan MD [address] [place], [place] [id number] PCP - General Internal Medicine 09/19/22 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 Specialty Start Date End Date Cony Jordan MD [address] [place] [address] PCP - General Internal Medicine 09/19/22 Cony Jordan MD [address] [place], [place] [id number] PCP - ARPAN Attributed Provider - [employer] 11/14/22 10/13/50 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 DATE CREATED AUTHOR AUTHOR'S ORGANIZ ATION 04/11/2023 [facility] DATE CREATED AUTHOR AUTHOR'S ORGANIZ ATION 06/23/2023 [facility] DATE CREATED AUTHOR AUTHOR'S ORGANIZ ATION 10/13/2023 [facility] FOR RECORDS PERTAINING TO PATIENTS WHO ARE OR HAVE BEEN ENROLLED IN A CHEMICAL DEPENDENCY/SUBSTANCEABUSE PROGRAM, SOME INFORMATION MAY BE OMITTED. This clinical summary was aggregated from multiple sources. Caution should be exercised in using it in the provision of clinical care. This summary normalizes information from multiple sources, and as a consequence, information in this document may materially change the coding, format and clinical context of patient data. In addition, data may be omitted in some cases. CLINICAL DECISIONS SHOULD BE BASED ON THE PRIMARY CLINICAL RECORDS. [facility] [employer] [facility]. provides no warranty or guarantee of the accuracy or completeness of information in this document.
[2023-10-16 19:18] LABS: Group B Strep DNA By PCR Negative (Negative); Internal Control PASS; Probe Check PASS; Specimen Processing Control PASS
== END | disposition home or self-care (01) ==
LOC: LABSPEC 16:49
PROVIDERS: Referring Provider Registered Nurse; Visit Provider Registered Nurse
DX: Z34.90 Encounter for supervision of normal pregnancy, unspecified, unspecified trimester (principal)
CPT/HCPCS: 87081; 87653

== ENCOUNTER 2023-10-18 11:52 | Outpatient (CLI) | payer OTHER, SELFPAY ==
[2023-10-18] VITALS (11 sets, daily range): BP systolic 130–153; BP diastolic 65–91; PULSE 95–115; TEMP 37.1; O2SAT 98; BMI 44.8
[2023-10-18 13:26] LABS: Hematocrit 37.4 % (37-47); Mean Corp Hgb Conc 32.1 g/dL (32-36); Mean Corpuscular Volume 87.4 fL (81-99); Mean Platelet Vol. 10.5 fl (6.2-12.0); Platelet Count 214 K/mm3 (150-450); RBC Distribution Width CV 15.1 % (11.6-14.6); RBC Distribution Width SD 48.5 fl (35.1-43.9); Red Blood Count 4.28 M/mm3 (4.2-5.4); White Blood Count 10.7 K/mm3 (4.4-11.0)
[2023-10-18 13:36] LABS: AST(SGOT) 21 U/L (15-37); Alanine Aminotransfer ALT/SGPT 29 U/L (13-56); Creatinine, Serum 0.54 mg/dL (0.55-1.02); EST Glomerular Filtration Rate 146 mL/min (>60); Est Glom Filt Rate - Afr Amer 176 mL/min (>60); Estimated Creatinine Clearance 138.72 ml/min; Uric Acid 4.5 mg/dL (2.6-6.0)
[2023-10-18 13:37] LABS: Protein, Urine (Random) < 6.0 mg/dL (<11.9)
--- NOTE | 2023-10-18 14:29 | OB.TRI.HP_ITS ---
HPI - General General Date of Service: 10/18/23 HPI Narrative JEROME GRADY, is a 22 F 36.5 weeks gestation who presents with right sided abdominal pain. Started today as a dull ache. no complaints of headache, dizziness, blurred vision. no lower extremity edema Maternal Data Information KAMRYN Calculator Estimated Delivery Date Method Current WG Current Estimate 11/10/23 Ultrasound #1 36w 5d Other Estimates 11/06/23 LMP (Certain) 37w 2d Final KAMRYN: 11/10/23 Final KAMRYN Source: US >20 weeks Gestational age: 36.5 weeks PFSH PFSH Medical History Ovarian cyst Home Medications vitamin#30 30 mg iron-10 mg iron-folic acid 1 mg-omg3 capsule cap PO 04/03/23 [History Last Taken Unknown] Allergy/AdvReac Type Severity Reaction Status Date / Time No Known Allergies Allergy Verified 10/18/23 12:21 Family History Father Diabetes Surgical History Status post cholecystectomy Social History household members: significant other number of children: 0 current occupational status: employed current occupation: [employer] history of recent travel: No sexually active: Yes Smoking Status: Never smoker alcohol intake: current alcohol intake frequency: a few times a month substance use type: does not use what type of physical activity do you participate in: none seatbelt use: always do you feel safe at home: Yes additional social history: - Harley History 1 Elective abortions Hx Para 0 Spontaneous abortions Hx # Term Pregnancies Ectopic pregnancies Hx # Pregnancies Multiple births # of living children Visit Details Expected Delivery Route/Plan Labor Preferences- CB/BF classes: enc labor support person: Harley labor intervention preferences: pain management options preferred: epidural cut cord/dad catch: unsure : yes PP control planned: [] discussed possible routes of delivery and associated risks: [] special requests: [] Plans Covid status: declined Flu vaccine: at work Tdap vaccine: given 28wks Rhogam: NA LARC form signed: yes movement and labor precautions reviewed. Problem list reviewed and updated with the most current plan of care details and appropriate orders placed. Relevant counseling for the gestational age provided. Continue routine care and follow up unless otherwise noted in visit notes/problem list details OB Flowsheet Initial Weight: 219 lb Date -?-?-?-?-?-?-?-?-?-?-?-?- EGA Weight BP Urine Prot -?-?-?-?-?-?-?-?-?-?-?-?- Glucose FHR FuHt Pres Dilation -?-?-?-?-?-?-?-?-?-?-?-?- Effaced St Visit Note 04/03/23 -?-?-?-?-?-?-?-?-?-?-?-?- 8w 3d 219 lb 6 oz (+6 oz) 135/82 -?-?-?-?-?-?-?-?-?-?-?-?- 168 -?-?-?-?-?-?-?-?-?-?-?-?- KW-CRL not cons with LMP. JV scanned 05/01/23 -?-?-?-?-?-?-?-?-?-?-?-?- 12w 3d 217 lb 4 oz (-1 lb 12 oz) 127/82 -?-?-?-?-?-?-?-?-?-?-?-?- 155 -?--?-?-?-?-?-?-?-?-?-?-?- LC- had spotting on saturday, none since. +FHT. desires NIPT. discussed and declines afp. recollected gc/ct and urine culture. reviewed nob labs. 05/29/23 -?-?-?-?-?-?-?-?-?-?-?-?- 16w 3d 221 lb 4 oz (+2 lb 4 oz) 125/84 Negative -?-?-?-?-?-?-?-?-?-?-?-?- Negative 149 -?-?-?-?-?-?--?-?-?-?-?-?- MH-No VB. Feels well. denies concerns 06/26/23 -?-?-?-?-?-?-?-?-?-?-?-?- 20w 3d 221 lb 4 oz (+2 lb 4 oz) 226 lb 8 oz (+7 lb 8 oz) 134/84 Negative -?-?-?-?-?-?-?-?-?-?-?-?- Negative 150 -?-?-?-?-?-?-?-?-?-?-?-?- LC-no vb/crampin g. normal us. concerned with wt gain. reviewed and encouraged healthy choices/body movement. 07/24/23 -?-?-?-?-?-?-?-?-?-?-?-?- 24w 3d 232 lb 8 oz (+13 lb 8 oz) 118/80 Negative -?-?-?-?-?-?-?-?-?-?-?-?- Negative 147 -?-?-?-?-?-?-?-?-?-?-?-?- MH-No VB or cram ping. Is now feeling movement/ant placenta. Larc 08/21/23 -?-?-?-?-?-?-?-?-?-?-?-?- 28w 3d 242 lb (+23 lb) 135/86 Negative -?-?-?-?-?-?-?-?-?-?-?-?- Negative 143 -?-?-?-?-?-?--?-?-?-?-?-?- JV- tdap today. kick counts reviewed. has anterior placenta. no complaints 09/04/23 -?-?-?-?-?-?-?-?-?-?-?-?- 30w 3d 245 lb 6 oz (+26 lb 6 oz) 128/86 Negative -?-?-?-?-?-?-?-?-?-?-?-?- Negative 140 30 -?-?-?-?-?-?-?-?-?-?-?-?- Sm- no vb lof g ood fm no regular ctx 09/18/23 -?-?-?-?-?-?-?-?-?-?-?-?- 32w 3d 252 lb 6 oz (+33 lb 6 oz) 141/95 129/85 Negative -?-?-?-?-?-?-?-?-?-?-?-?- Negative 145 33 Cephalic -?-?-?-?-?-?-?-?-?-?-?-?- JV- no lof, vagi nal bleeding, or dec fm. rpt bp was normal. has some burning with urination. sending urine for culture. 10/02/23 -?-?-?-?-?-?-?-?-?-?-?-?- 34w 3d 255 lb 8 oz (+36 lb 8 oz) 128/83 Negative -?-?-?-?-?-?-?-?-?-?-?-?- Negative 141 35 -?-?-?-?-?-?-?-?-?-?-?-?- JV- urine ca was neg. no lof, vaginal bleeding, or dec fm. 10/16/23 -?-?-?-?-?-?-?-?-?-?-?-?- 36w 3d 257 lb 6 oz (+38 lb 6 oz) 128/86 Negative -?-?-?-?-?-?-?-?-?-?-?-?- Negative 150 36 Cephalic 0 -?-?-?-?-?-?-?-?-?-?-?-?- LC- no vb/lof/ct x. good fm. gbs collected. ROS Constitutional Constitutional: Reports fatigue and headache(s); Denies fever(s) Eyes Eyes: Reports blurry vision bilateral, floaters and puffy eyes ENT HEENT: Reports headache(s) Cardiovascular Cardiovascular: Reports diaphoresis, dizziness, fatigue, lightheadedness and nausea; Denies chest pain or dyspnea Respiratory/Chest Respiratory/Chest: Reports systems reviewed and no addt'l complaints, except as documented; Denies change in mental status Gastrointestinal Gastrointestinal: Reports systems reviewed and no addt'l complaints, except as documented Genitourinary Genitourinary: Reports movement Details: present; Denies contractions or difficulty urinating Musculoskeletal Musculoskeletal: Reports systems reviewed and no addt'l complaints, except as documented Integumentary Integumentary: Reports systems reviewed and no addt'l complaints, except as documented Neurologic Neurologic: Reports dizziness, headache(s) and other visual disturbances Psychiatric Psychiatric: Reports systems reviewed and no addt'l complaints, except as documented Physical Exam Const alert, oriented x3 and no apparent distress General Appearance: cooperative Eyes no papilledema General Eye: normal appearance of both eyes Periorbital: periorbital findings normal Neck full ROM Resp normal respiratory effort, No no retractions and no use of accessory muscles GI normal to inspection, nondistended, normoactive bowel sounds and soft to palpation Inspection: gravid Palpation: soft; Negative for tender Narrative: uterus soft on palpation, no contractions, + movement Manual OB Exam: estimated gestational size appropriate Uterus Palpation: Negative for uterus tender or uterus hypertonus Extremity normal to inspection, full ROM and no calf tenderness Peripheral Pulses: Yes pulses 2+ throughout Skin no rashes or lesions noted Neuro moves all extremities Motor Exam: clonus absent Psych mental status grossly normal, thought process normal and cooperative Appearance: grossly normal NST FHR Rate Baby A Baseline: 135 Variability:: Moderate Accelerations:: 15 x 15 Decelerations:: None NST Reactive:: Yes FHR Category:: Category I Uterine Activity:: none Assessment & Plan (1) Gestational hypertension: COMMENT: pre e labs nl, celestone, 24 hr urine, bps at home. consider 37 week IOL if elevated with 2nd dose of celestone- consult with SM (2) Obesity affecting : QUALIFIERS: Trimester: second trimester Obesity type affecting : unspecified obesity Qualified Code(s): O99.212 - Obesity complicating , second trimester COMMENT: passed early GCT. enc healthy weight (3) Supervision of high risk , antepartum: COMMENT: [id number] KAMRYN 11/06/23, boy, atul Spouse Harley (4) : QUALIFIERS: Weeks of gestation: 36 weeks Qualified Code(s): Z3A.36 - 36 weeks gestation of COMMENT: normal anatomy scan. carrier ntd screening negative. NIPT low risk. gbs neg Charges/Coding Visit Charges Office Visits / Consults: 87303 OV L3 Est 20min Multi Select Codes Visit Charges Visit Charges: 61838 Subs Hosp L3 Urinary/Genital Urinary/Genital CPT Codes: 06925-21 non-stress test Interp
[2023-10-18] MEDS: Betamethasone/Betamethasone 30 MG/5 ML Vial 12 MG IM (15:01)
[2023-10-19 15:32] LABS: 24 Hour Urine Protein 153.6 mg/24HR (<150 MG/24HR); 24HR. UA Prot. Total Volume 1850 mL; Urine Protein (24 Hour) 8.3 mg/dL (<11.9)
== END 2023-10-18 15:10 | disposition home or self-care (01) ==
LOC: WPOUT 11:53 → WP 11:53
PROVIDERS: Referring Provider Advanced Practice Midwife; Visit Provider Advanced Practice Midwife
DX: O99.891 Other specified diseases and conditions complicating pregnancy (principal); R10.9 Unspecified abdominal pain; Z3A.36 36 weeks gestation of pregnancy; O13.3 Gestational [pregnancy-induced] hypertension without significant proteinuria, third trimester; O99.213 Obesity complicating pregnancy, third trimester
CPT/HCPCS: 36415; 59025; 59050; 82565; 82570; 84156; 84450; 84460; 84550; 85027; 96372; J0702

== ENCOUNTER 2023-10-19 15:20 | Inpatient (IN) | payer OTHER, SELFPAY ==
[2023-10-19] VITALS (37 sets, daily range): BP systolic 119–164; BP diastolic 56–90; PULSE 89–133; TEMP 36.6–37.8; O2SAT 67–98; BMI 44.1
--- OUTSIDE RECORDS SUMMARY | 2023-10-19 14:58 | XMS RPT_ITS | CCD ---
Author Name Unknown Address [id number] [place] [address] Organization [facility] Care Team Providers Care Other Spatial Scientist Name Role Phone Cony Jordan MD Primary Care Provider Cony Jordan Attending Unavailable ETHEL MEREDITH Referring Unavailab le NIKKI, CONY Primary Care Unavailable ETHEL MEREDITH Attending Unavailab le NIKKI, CONY Admitting Unavailable NIKKI, CONY Primary Care Unavailable NIKKI, CONY Admitting Unavailable NIKKI, CNOY Primary Care Unavailable NIKKI, CONY Primary Care [...] HENRY Attending Unavailable NIKKI, CONY Attending Unavailable NKIKI, CONY Primary Care Unavailable ETHEL MEREDITH Attending Unavailab le NIKKI, CONY Primary Care Unavailable NIKKI, CONY Primary Care Unavailable ETHEL MEREDITH Attending Unavailab le NO PRIMARY CARE, Primary Care Unavailable FERNANDA COLINDRES Referring Unavailable YASMIN MONROE Attending Unavailable NikkiCony britton MD Primary Care Provider NIKKI, CONY Primary Care Unavailable EMPERATRIZ LEE [...] 20 mg/ml oral solution (1 source) Uncompetitive L-sxszdu-I-aspartat e Receptor Antagonist, Sigma-1 Agonist Start: 04-10-2023 [...] 30 capsule 0 12/04/2022 01/03/2023 Active vitamin dajefis-fonk-wqfzr 27 mg iron- 1 mg tablet (1 source) Start: 02-11-2023 vitamin aumuhsc-howi-wdvs c 27 mg iron- 1 mg tablet [...] 09:45-0500 Body height 162.6 cm Emperatriz Lee FAMILY MEDICINE RESIDENT-PEDAL ASSEMBLER Work Phone: [facility] 10-12-2023 09:45-0500 Body mass index (BMI) [Ratio] 42.91 kg/m2 Emperatriz Lee FAMILY MEDICINE RESIDENT-PEDAL ASSEMBLER Work Phone: [facility] 10-12-2023 09:45-0500 Body temperature 97.59 [degF] Emperatriz Lee FAMILY MEDICINE RESIDENT-PEDAL ASSEMBLER Work Phone: [facility] 10-12-2023 09:45-0500 Body weight 113.4 kg Emperatriz Lee FAMILY MEDICINE RESIDENT-PEDAL ASSEMBLER Work Phone: [facility] 10-12-2023 09:45-0500 Diastolic blood pressure 84 mm[Hg] Emperatriz Lee FAMILY MEDICINE RESIDENT-PEDAL ASSEMBLER Work Phone: [facility] 10-12-2023 09:45-0500 Heart rate 91 /min Emperatriz Lee FAMILY MEDICINE RESIDENT-PEDAL ASSEMBLER Work Phone: [facility] 10-12-2023 09:45-0500 Respiratory rate 16 /min Emperatriz Seymour FAMILY MEDICINE RESIDENT-PEDAL ASSEMBLER Work Phone: [facility] 10-12-2023 09:45-0500 SaO2% (BldA) [Mass fraction] 97 % Emperatriz Lee FAMILY MEDICINE RESIDENT-PEDAL ASSEMBLER Work Phone: [facility] 10-12-2023 09:45-0500 Systolic blood pressure 132 mm[Hg] Emperatriz Seymour FAMILY MEDICINE RESIDENT-PEDAL ASSEMBLER Work Phone: [facility] 04-10-2023 13:33-0400 Body height 162.6 cm Cony Jordan MD Work Phone: [facility] 04-10-2023 13:33-0400 Body mass index (BMI) [Ratio] 37.59 kg/m2 Cony Jordan MD Work Phone: [facility] 04-10-2023 13:33-0400 Body temperature 98.6 [degF] Cony Jordan MD Work Phone: [facility] 04-10-2023 13:33-0400 Body weight 99.34 kg Cony Jordan MD Work Phone: [facility] 04-10-2023 13:33-0400 Diastolic blood pressure 84 mm[Hg] Cony Jordan MD Work Phone: [facility] 04-10-2023 13:33-0400 Heart rate 86 /min Cony Jordan MD Work Phone: [facility] 04-10-2023 13:33-0400 Respiratory rate 16 /min Cony Jordan MD Work Phone: [facility] 04-10-2023 13:33-0400 SaO2% (BldA) [Mass fraction] 99 % Cony Jordan MD Work Phone: [facility] 04-10-2023 13:33-0400 Systolic blood pressure 128 mm[Hg] Cony Jordan MD Work Phone: [facility] 12-19-2022 08:33-0500 Body mass index (BMI) [Ratio] 35.87 kg/m2 Ethel Meredith MD Work Phone: [facility] 12-19-2022 08:33-0500 Body weight 94.8 kg Ethel Meredith MD Work Phone: [facility] 12-19-2022 08:33-0500 Diastolic blood pressure 88 mm[Hg] Ethel Meredith MD Work Phone: [facility] 12-19-2022 08:33-0500 Heart rate 105 /min Ethel Meredith MD Work Phone: [facility] 12-19-2022 08:33-0500 Systolic blood pressure 131 mm[Hg] Ethel Meredith MD Work Phone: [facility] 11-21-2022 08:06-0500 Body mass index (BMI) [Ratio] 34.28 kg/m2 Ethel Meredith MD Work Phone: [facility] 11-21-2022 08:06-0500 Body weight 93.44 kg Ethel Meredith MD Work Phone: [facility] 11-21-2022 08:06-0500 Diastolic blood pressure 86 mm[Hg] Ethel Meredith MD Work Phone: [facility] 11-21-2022 08:06-0500 Heart rate 90 /min Ethel Meredith MD Work Phone: [facility] 11-21-2022 08:06-0500 Systolic blood pressure 129 mm[Hg] Ethel Meredith MD Work Phone: [facility] 10-24-2022 09:23-0500 Body height 165.1 cm Ethel Meredith MD Work Phone: [facility] 10-24-2022 09:23-0500 Body mass index (BMI) [Ratio] 34.28 kg/m2 Ethel Meredith MD Work Phone: [facility] 10-24-2022 09:23-0500 Body weight 93.44 kg Ethel Meredith MD Work Phone: [facility] 10-24-2022 09:23-0500 Diastolic blood pressure 88 mm[Hg] Ethel Meredith MD Work Phone: [facility] 10-24-2022 09:23-0500 Heart rate 83 /min Ethel Meredith MD Work Phone: [facility] 10-24-2022 09:23-0500 Respiratory rate 14 /min Ethel Meredith MD Work Phone: [facility] 10-24-2022 09:23-0500 SaO2% (BldA) [Mass fraction] 98 % Ethel Meredith MD Work Phone: [facility] 10-24-2022 09:23-0500 Systolic blood pressure 134 mm[Hg] Ethel Meredith MD Work Phone: [facility] 09-19-2022 08:48-0500 Body height 162.6 cm Cony Jordan MD Work Phone: [facility] 09-19-2022 08:48-0500 Body mass index (BMI) [Ratio] 35.02 kg/m2 Cony Jordan MD Work Phone: [facility] 09-19-2022 08:48-0500 Body temperature 98.71 [degF] Cony Jordan MD Work Phone: [facility] 09-19-2022 08:48-0500 Body weight 92.53 kg Cony Jordan MD Work Phone: [facility] 09-19-2022 08:48-0500 Diastolic blood pressure 83 mm[Hg] Cony Jordan MD Work Phone: [facility] 09-19-2022 08:48-0500 Heart rate 89 /min Cony Jordan MD Work Phone: [facility] 09-19-2022 08:48-0500 Respiratory rate 16 /min Cony Jordan MD Work Phone: [facility] 09-19-2022 08:48-0500 SaO2% (BldA) [Mass fraction] 97 % Cony Jordan MD Work Phone: [facility] 09-19-2022 08:48-0500 Systolic blood pressure 117 mm[Hg] Cony Jordan MD Work Phone: [facility] Encounters Encounter Date Encounter Type Care Provider Facility Start: 10-12-2023 End: 10-12-[address] [facility] Start: 10-12-2023 End: 10-12-2023 Patient encounter procedure Emperatriz Lee FAMILY MEDICINE RESIDENT-PEDAL ASSEMBLER Work Phone: [facility] Procedures Date Procedure Procedure Detail Performing Clinician Start: 09-19-2022 Adult depression screening assessment Cony Jordan MD Work Phone: History of cholecystectomy S/P cholecyste ctomy Ethel Meredith MD Work Phone: Plan of Treatment Date Care Activity Detail Author Start: 2048 Zoster Vaccines (1 of 2) Zoster Vaccines (1 of 2) [facility] Start: 08-21-2033 DTaP/Tdap/Td Vaccines (2 - Td or Tdap) DTaP/Tdap/Td Vaccines (2 - Td or Tdap) [facility] Start: 09-19-2023 Depression screening using PHQ-9 (Patient Health Questionnaire 9) score Depression Screening (PHQ-2/9) [facility] Start: 06-14-2023 Influenza vaccination [facility] Start: 12-04-2022 End: 12-04-2022 Admission to same day surgery center 12/04/2022 Surgery Ethel Meredith MD [address] [address] CHOLECYSTECTOMY ROBOTIC [facility] Periop Payers Date Payer Category Payer Unknown [id number] 2022 Unknown [id number] 2022 Unknown [id number] 1998 Unknown [id number] 2.16.8 [id number] 1998 Unknown [id number] 2.16. [id number] 1998 Unknown [id number] 2.16. [id number] 1998 Unknown [id number] 2.16. [id number] 1998 Unknown [id number] 2.16. [id number] 1998 Unknown [id number] 2.16. [id number] 1998 Unknown [id number] 2.16. [id number] 1998 Unknown [id number] 2.16. [id number] 1998 Unknown [id number] 2.16. [id number] 1998 Unknown [id number] 2.16. [id number] 1998 Unknown [id number] 2.16. [id number] 1998 Unknown [id number] 2.16. [id number] 1998 Unknown [id number] 2.16. [id number] 1998 Unknown [id number] 2.16.84 [id number] Social History Date Type Detail Facility Start: 09-19-2022 End: 10-12-2023 Tobacco smoking status NHIS Never smoked tobacco [facility] Start: 09-19-2022 End: 10-12-2023 Tobacco use and exposure Smokeless tobacco non-user [facility] Start: 09-19-2022 End: 04-10-2023 Alcohol intake Current drinker of alcohol (finding) [facility] Start: 09-19-2022 Alcohol Comment social [facility] Start: 2000 Sex Assigned At Not on file O [facility] Start: 09-09-2022 End: 10-12-2023 Exposure to SARS-CoV-2 (event) Not sure [facility] Start: 11-28-2022 Alcohol Comment once every oth er weekend [facility] Start: 09-19-2022 End: 12-19-2022 History of Social function [facility] Start: 09-19-2022 End: 12-19-2022 Tobacco use panel [facility] Adult Depression Screening Assessment 0 [facility] Start: 09-19-2022 Gender identity Identifies as female gender (finding) [facility] Start: 09-19-2022 Sexual orientation Heterosexual (fin ding) [facility] Start: 10-12-2023 Alcohol intake Lifetime non-d juan r (finding) [facility] Work Phone: NEGATED: Highlighted rowStart: JACOBOF History of tobacco use Passive smoker [facility] Clinical Notes 09-19-2022 to 10-12-2023 Emperatriz Lee [...] swelling and pain. 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 [...] Review Audit Reviewed by Jessica Tena MA (Orthopaedic General) on 10/12/23 at 0949 Medication Order Taking? Sig Documenting Provider Last Dose Status vitamin aketwpn-ljsd-zivvw 27 mg iron- 1 mg tablet [id number] Yes Historical Provider, Taking Active History reviewed. [...] or any new concerns. Emperatriz Lee CNP [facility] [phone] documented in this encounter [facility] Work Phone: 04-10-2023 Evaluation + Plan note Associated Problem(s): 9 weeks gestation of Taking pre natals hsa global product manager appt set up [facility] 04-10-2023 Miscellaneous Notes Associated Problem(s): 9 weeks gestation of Taking pre natals hsa global product manager appt set up Associated Problem(s): Cough Pt reassured -taking vitamin -advised pt to take cough syrup as needed and use saline nasal spray Drink warm liquids like tea with honey, soups and take warm steam showers to help soothe your symptoms Hydration, rest promoted. documented in this encounter [facility] 04-10-2023 Evaluation + Plan note Associated Problem(s): Cough Pt reassured -taking vitamin -advised pt to take cough syrup as needed and use saline nasal spray Drink warm liquids like tea with honey, soups and take warm steam showers to help soothe your symptoms Hydration, rest promoted. [facility] 04-10-2023 History of Present illness Narrative Assessment Assessment/Plan: Problem List Cough Pt reassured -taking vitamin -advised pt to take cough syrup as needed and use saline nasal spray Drink warm liquids like tea with honey, soups and take warm steam showers to help soothe your symptoms Hydration, rest promoted. 9 weeks gestation of Taking pre natals hsa global product manager appt set up Return in about 1 year (around 04/10/2024) for Annual Exam. For any new medications prescribed today, patient was educated about indications for the medication, how to take the medication and potential side effects of the medications. Cony Jordan MD [facility] [address] [facility] [address] [facility] [address] Dept: [phone] Subjective Chief Complaint Patient presents with Cough [...] given: Not Answered documented in this encounter [facility] 12-19-2022 History of Present illness Narrative [facility] PATIENT: Jerome Grady DATE / TIME: [...] Follow-up as needed. documented in this encounter [facility] 11-21-2022 History of Present illness Narrative [facility] PATIENT: Jerome Grady DATE / TIME: [...] Information Primary Emergency Contact: Harley Grady Address: [address] [place] [address] of [employer] Relation: Spouse MEDICATIONS: Outpatient [...] Following IV injection of 4.4 mCi of cuyruqxfju-99a-Nlbtocze, anterior imaging of the abdomen was acquired [...] of Jerome Grady. documented in this encounter [facility] 10-24-2022 History of Present illness Narrative [facility] PATIENT: Jerome Grady DATE / TIME: 10/24/22 [...] Her symptoms improved, but again recurred around [place]. It seemed to be exacerbated by PO [...] and Sexual Activity Drug Use Never Occupation: [employer] Marital status: Support person (if other than spouse): Extended Emergency Contact Information Primary Emergency Contact: Harley Grady Address: [address] [place] [address] of [employer] Relation: Spouse MEDICATIONS: Outpatient [...] of Jerome Grady. documented in this encounter [facility] 09-19-2022 Evaluation + Plan note Associated Problem(s): [...] vs gerd Will order lipase and US [facility] 09-19-2022 Instructions Cony Jordan MD - 09/19/2022 [...] to control the problem with antacids or etuc-ijy-izykkjj medicine. You can also make lifestyle changes [...] with your medicine. Your doctor may recommend sfsb-wwo-idgcvpt medicine. For mild or occasional indigestion, antacids, such as Tums, Gaviscon, Mylanta, or Maalox, may help. Your doctor also may recommend jrit-lmj-ithzdqf acid reducers, such as famotidine (Pepcid AC), [...] Log into your personal health record on [email or web address] and enter T927 in the Education box to learn more about Gastroesophageal Reflux Disease (GERD): Care Instructions. Current as of: March 19, 2022 Content Version: 13.4 [employer]. Care instructions adapted under license by your healthcare professional. If you have questions about a medical condition or this instruction, always ask your healthcare professional. [employer] disclaims any warranty or liability for your use of this information. documented in this encounter [facility] 09-19-2022 Miscellaneous Notes Associated Problem(s): Abdominal pain [...] lipase and US documented in this encounter [facility] 09-19-2022 History of Present illness Narrative Assessment [...] effects of the medications. Cony Jordan MD [facility] [address] [facility] [address] [facility] [address] Dept: [phone] Subjective Chief Complaint Patient presents with Abdominal [...] given: Not Answered documented in this encounter [facility] Biliary colic- Primary Calculus of [...] Primary Acute tonsillitis documented in this encounter [facility] Work Phone: Reason for Referral Specialty Diagnoses / Procedures Referred By Contac t Referred To Contact Diagnoses Abdominal pain, unspecified abdominal location Procedures US Abdomen Limited Study Cony Jordan MD [id number] [place] [address] Phone: [phone] Referral ID Status Reason Start Date Expiration Date Visits Requested Visits Authorized [id number] Authorized Patient Preference 09/19/2022 09/19/2023 1 1 Specialty Diagnoses / Procedures Referred By Contac t Referred To Contact General Surgery Diagnoses Biliary colic Cony Jordan MD [address] [place] [address] Ethel Meredith MD [address] [address] Referral ID Status Reason Start Date Expiration Date V isits Requested Visits Authorized [id number] Authorized 09/20/2022 09/20/2023 1 1 Specialty Diagnoses / Procedures Referred By Contac t Referred To Contact Radiology Diagnoses Biliary colic Procedures NM Hepatobiliary With Ejection Fraction Ethel Meredith MD [address] [address] Referral ID Status Reason Start Date Expiration Date V isits Requested Visits Authorized [id number] Authorized 10/24/2022 10/24/2023 4 4 Summary Purpose [...] Diagnoses Biliary colic Cony Jordan MD [id number] Ethel Meredith MD [address] [address] Referral ID Status Reason Start Date Expiration Date Visits Re quested Visits Authorized [id number] Closed 09/20/2022 09/20/2023 1 1 Reason Comments Follow-up HIDA scan Reason Comments Follow-up cholecystectomy Reason Comments Cough Reason Comments URI SORE THROAT, HEADACH E, CONGESTION X 4 DAYS 36 WEEKS Care Teams (unrecognized sec tion and content) Other Spatial Scientist Relationship Specialty Start Date End Date Cony Jordan MD [id number] PCP - General Internal Medicine 09/19/22 Other Spatial Scientist Relationship Specialty Start Date End Date Cony Jordan MD [address] [place], [place] [id number] PCP - General Internal Medicine 09/19/22 Other Spatial Scientist Relationship Specialty Start Date End Date Cony Jordan MD [address] [place], [place] [id number] PCP - General Internal Medicine 09/19/22 Other Spatial Scientist Relationship Specialty Start Date End Date Cony Jordan MD [address] [place] [address] PCP - General Internal Medicine 09/19/22 Other Spatial Scientist Relationship Specialty Start Date End Date Cony Jordan MD [address] [place], [place] [id number] PCP - General Internal Medicine 09/19/22 Other Spatial Scientist Relationship Specialty Start Date End Date Cony Jordan MD [address] [place] [address] PCP - General Internal Medicine 09/19/22 Cony Jordan MD [address] [place], [place] [id number] PCP - ARPAN Attributed Provider - [employer] 11/14/22 10/13/50 Other Spatial Scientist Relationship Specialty Start Date End Date Cony Jordan MD [address] [facility] [place] [address] PCP - General 10/03/22 INFORMATION SOURCE (unrecogn ized section and content) DATE CREATED AUTHOR AUTHOR'S ORGANIZ ATION 12/06/2022 [facility] DATE CREATED AUTHOR AUTHOR'S ORGANIZ ATION 04/11/2023 [facility] DATE CREATED AUTHOR AUTHOR'S ORGANIZ ATION 06/23/2023 [facility] DATE CREATED AUTHOR AUTHOR'S ORGANIZ ATION 10/13/2023 [facility] FOR RECORDS PERTAINING TO PATIENTS WHO ARE [...] BE BASED ON THE PRIMARY CLINICAL RECORDS. [facility]. provides no warranty or guarantee of the accuracy or completeness of information in this document.
[2023-10-19] MEDS: Betamethasone/Betamethasone 30 MG/5 ML Vial 12 MG IM (15:29)
--- OUTSIDE RECORDS SUMMARY | 2023-10-19 15:41 | XMS RPT_ITS | CCD ---
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 Work Phone: [facility] 10-12-2023 09:45-0500 Body mass index (BMI) [Ratio] 42.91 kg/m2 Emperatriz Lee [employer]LON H[employer] W[employer] CUTTER-WARP TYING MACHINE TENDER Work Phone: [facility] 10-12-2023 09:45-0500 Body temperature 97.59 [degF] Emperatriz Lee NYLON H[employer] WIRE CUTTER-WARP TYING MACHINE TENDER Work Phone: [facility] 10-12-2023 09:45-0500 Body weight 113.4 kg Emperatriz Lee [employer]LON H[employer] W[employer] CUTTER-WARP TYING MACHINE TENDER Work Phone: [facility] 10-12-2023 09:45-0500 Diastolic blood pressure 84 mm[Hg] Emperatriz Lee NYLON HOT WIRE CUTTER-WARP TYING MACHINE TENDER Work Phone: [facility] 10-12-2023 09:45-0500 Heart rate 91 /min Emperatriz Lee NYLON H[employer] W[employer] CUTTER-WARP TYING MACHINE TENDER Work Phone: [facility] 10-12-2023 09:45-0500 Respiratory rate 16 /min Emperatriz Seymour NYLON HOT WIRE CUTTER-WARP TYING MACHINE TENDER Work Phone: [facility] 10-12-2023 09:45-0500 SaO2% (BldA) [Mass fraction] 97 % Emperatriz Lee NYLON HOT WIRE CUTTER-WARP TYING MACHINE TENDER Work Phone: [facility] 10-12-2023 09:45-0500 Systolic blood pressure 132 mm[Hg] Emperatriz Seymour NYLON HOT WIRE CUTTER-WARP TYING MACHINE TENDER Work Phone: [facility] 04-10-2023 13:33-0400 Body height 162.6 cm Cony Jordan MD Work Phone: [facility] 04-10-2023 13:33-0400 Body mass index (BMI) [Ratio] 37.59 kg/m2 Cony Jordan MD Work Phone: [facility] 04-10-2023 13:33-0400 Body temperature 98.6 [degF] Cony Jordan MD Work Phone: [facility] 04-10-2023 13:33-0400 Body weight 99.34 kg Cony Jordan MD Work Phone: [facility] 04-10-2023 13:33-0400 Diastolic blood pressure 84 mm[Hg] Cony Jordan MD Work Phone: [facility] 04-10-2023 13:33-0400 Heart rate 86 /min Cony Jordan MD Work Phone: [facility] 04-10-2023 13:33-0400 Respiratory rate 16 /min Cony Jordan MD Work Phone: [facility] 04-10-2023 13:33-0400 SaO2% (BldA) [Mass fraction] 99 % Cony Jordan MD Work Phone: [facility] 04-10-2023 13:33-0400 Systolic blood pressure 128 mm[Hg] Cony Jordan MD Work Phone: [facility] 12-19-2022 08:33-0500 Body mass index (BMI) [Ratio] 35.87 kg/m2 Ethel Meredith MD Work Phone: [facility] 12-19-2022 08:33-0500 Body weight 94.8 kg Ethel Meredith MD Work Phone: [facility] 12-19-2022 08:33-0500 Diastolic blood pressure 88 mm[Hg] Ethel Meredith MD Work Phone: [facility] 12-19-2022 08:33-0500 Heart rate 105 /min Ethel Meredith MD Work Phone: [facility] 12-19-2022 08:33-0500 Systolic blood pressure 131 mm[Hg] Ethel Meredith MD Work Phone: [facility] 11-21-2022 08:06-0500 Body mass index (BMI) [Ratio] 34.28 kg/m2 Ethel Meredith MD Work Phone: [facility] 11-21-2022 08:06-0500 Body weight 93.44 kg Ethel Meredith MD Work Phone: [facility] 11-21-2022 08:06-0500 Diastolic blood pressure 86 mm[Hg] Ethel Meredith MD Work Phone: [facility] 11-21-2022 08:06-0500 Heart rate 90 /min Ethel Meredith MD Work Phone: [facility] 11-21-2022 08:06-0500 Systolic blood pressure 129 mm[Hg] Ethel Meredith MD Work Phone: [facility] 10-24-2022 09:23-0500 Body height 165.1 cm Ethel Meredith MD Work Phone: [facility] 10-24-2022 09:23-0500 Body mass index (BMI) [Ratio] 34.28 kg/m2 Ethel Meredith MD Work Phone: [facility] 10-24-2022 09:23-0500 Body weight 93.44 kg Ethel Meredith MD Work Phone: [facility] 10-24-2022 09:23-0500 Diastolic blood pressure 88 mm[Hg] Ethel Meredith MD Work Phone: [facility] 10-24-2022 09:23-0500 Heart rate 83 /min Ethel Meredith MD Work Phone: [facility] 10-24-2022 09:23-0500 Respiratory rate 14 /min Ethel Meredith MD Work Phone: [facility] 10-24-2022 09:23-0500 SaO2% (BldA) [Mass fraction] 98 % Ethel Meredith MD Work Phone: [facility] 10-24-2022 09:23-0500 Systolic blood pressure 134 mm[Hg] Ethel Merdeith MD Work Phone: [facility] 09-19-2022 08:48-0500 Body height 162.6 cm Cony Jordan MD Work Phone: [facility] 09-19-2022 08:48-0500 Body mass index (BMI) [Ratio] 35.02 kg/m2 Cony Jordan MD Work Phone: [facility] 09-19-2022 08:48-0500 Body temperature 98.71 [degF] Cony Jordan MD Work Phone: [facility] 09-19-2022 08:48-0500 Body weight 92.53 kg Cony Jordan MD Work Phone: [facility] 09-19-2022 08:48-0500 Diastolic blood pressure 83 mm[Hg] Cony Jordan MD Work Phone: [facility] 09-19-2022 08:48-0500 Heart rate 89 /min Cony Jordan MD Work Phone: [facility] 09-19-2022 08:48-0500 Respiratory rate 16 /min Cony Jordan MD Work Phone: [facility] 09-19-2022 08:48-0500 SaO2% (BldA) [Mass fraction] 97 % Cony Jordan MD Work Phone: [facility] 09-19-2022 08:48-0500 Systolic blood pressure 117 mm[Hg] Cony Jordan MD Work Phone: [facility] Encounters Encounter Date Encounter Type Care Provider Facility Start: 10-12-2023 End: 10-12-2023 ambulatory CONY JORDAN [facility] Start: 10-12-2023 End: 10-12-2023 Patient encounter procedure Emperatriz Lee [employer] H[employer] W[employer] CUTTER-WARP TYING MACHINE TENDER Work Phone: [facility] Procedures Date Procedure Procedure Detail Performing Clinician Start: 09-19-2022 Adult depression screening assessment Cony Jordan MD Work Phone: History of cholecystectomy S/P cholecyste ctomy Ethel Meredith MD Work Phone: Plan of Treatment Date Care Activity Detail Author Start: 2048 Zoster Vaccines (1 of 2) Zoster Vaccines (1 of 2) [facility] Start: 08-21-2033 DTaP/Tdap/Td Vaccines (2 - Td or Tdap) DTaP/Tdap/Td Vaccines (2 - Td or Tdap) [facility] Start: 09-19-2023 Depression screening using PHQ-9 (Patient Health Questionnaire 9) score Depression Screening (PHQ-2/9) [facility] Start: 06-14-2023 Influenza vaccination [facility] Start: 12-04-2022 End: 12-04-2022 Admission to same day surgery center 12/04/2022 Surgery Ethel Meredith MD [address] [address] CHOLECYSTECTOMY ROBOTIC [facility] Periop Payers Date Payer Category Payer Unknown [id number] 2022 Unknown [id number] 2022 Unknown [id number] 1998 Unknown [id number] 2.16.8 [id number] 1998 Unknown [id number] 2.16. [id number] 1998 Unknown [id number] 2.16. [id number] 1998 Unknown [id number] 2.16. [id number] 1998 Unknown [id number] 2.16. [id number] 1998 Unknown [id number] 2.16. [id number] 1998 Unknown [id number] 2.16. [id number] 1998 Unknown [id number] 2.16. [id number] 1998 Unknown [id number] 2.16. [id number] 1998 Unknown [id number] 2.16. [id number] 1998 Unknown [id number] 2.16. [id number] 1998 Unknown [id number] 2.16. [id number] 1998 Unknown [id number] 2.16. [id number] 1998 Unknown [id number] 2.16.84 [id number] Social History Date Type Detail Facility Start: 09-19-2022 End: 10-12-2023 Tobacco smoking status NHIS Never smoked tobacco [facility] Start: 09-19-2022 End: 10-12-2023 Tobacco use and exposure Smokeless tobacco non-user [facility] Start: 09-19-2022 End: 04-10-2023 Alcohol intake Current drinker of alcohol (finding) [facility] Start: 09-19-2022 Alcohol Comment social [facility] Start: 2000 Sex Assigned At Not on file O [facility]CTeal Start: 09-09-2022 End: 10-12-2023 Exposure to SARS-CoV-2 (event) Not sure [facility] Start: 11-28-2022 Alcohol Comment once every oth er weekend [facility] Start: 09-19-2022 End: 12-19-2022 History of Social function [facility] Start: 09-19-2022 End: 12-19-2022 Tobacco use panel [facility] Adult Depression Screening Assessment 0 [facility] Start: 09-19-2022 Gender identity Identifies as female gender (finding) [facility] Start: 09-19-2022 Sexual orientation Heterosexual (fin ding) [facility] Start: 10-12-2023 Alcohol intake Lifetime non-d juan r (finding) [facility] Work Phone: NEGATED: Highlighted rowStart: JACOBOF History of tobacco use Passive smoker [facility] Clinical Notes 09-19-2022 to 10-12-2023 Emperatriz Lee APRN-JOAN - 10/12/2023 8:40 AM ESTAssessment & Plan Note - oCny Jordan MD - 04/10/2023 3:51 PM EDTAssessment & Plan Note - Cony Jordan MD - 04/10/2023 3:51 PM EDT Note Date & Type Note Facility 10-12-2023 History of Present illness Narrative 22 y.o. female presents for evaluation of throat swelling and pain. 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 [...] Review Audit Reviewed by Jessica Tena MA (Acute Care Clinical Nurse Specialist) on 10/12/23 at 0949 Medication Order Taking? Sig Documenting Provider Last Dose Status vitamin vrishhn-nxjb-rnswp 27 mg iron- 1 mg tablet [id number] Yes Historical Provider, Taking Active History reviewed. [...] or any new concerns. Emperatriz Lee CNP [facility] [phone] documented in this encounter [facility] Work Phone: 04-10-2023 Evaluation + Plan note Associated Problem(s): 9 weeks gestation of Taking pre natals hsa mobility scooter repairer appt set up [facility] 04-10-2023 Miscellaneous Notes Associated Problem(s): 9 weeks gestation of Taking pre natals hsa mobility scooter repairer appt set up Associated Problem(s): Cough Pt reassured -taking vitamin -advised pt to take cough syrup as needed and use saline nasal spray Drink warm liquids like tea with honey, soups and take warm steam showers to help soothe your symptoms Hydration, rest promoted. documented in this encounter [facility] 04-10-2023 Evaluation + Plan note Associated Problem(s): Cough Pt reassured -taking vitamin -advised pt to take cough syrup as needed and use saline nasal spray Drink warm liquids like tea with honey, soups and take warm steam showers to help soothe your symptoms Hydration, rest promoted. [facility] 04-10-2023 History of Present illness Narrative Assessment Assessment/Plan: Problem List Cough Pt reassured -taking vitamin -advised pt to take cough syrup as needed and use saline nasal spray Drink warm liquids like tea with honey, soups and take warm steam showers to help soothe your symptoms Hydration, rest promoted. 9 weeks gestation of Taking pre natals hsa mobility scooter repairer appt set up Return in about 1 year (around 04/10/2024) for Annual Exam. For any new medications prescribed today, patient was educated about indications for the medication, how to take the medication and potential side effects of the medications. Cony Jordan MD [facility] [address] [facility] [address] [facility] [address] Dept: [phone] Subjective Chief Complaint Patient presents with Cough [...] given: Not Answered documented in this encounter [facility] 12-19-2022 History of Present illness Narrative [facility] PATIENT: Jerome Grady DATE / TIME: 12/19/22 [...] Follow-up as needed. documented in this encounter [facility] 11-21-2022 History of Present illness Narrative [facility] PATIENT: Jerome Grady DATE / TIME: 11/21/22 [...] Information Primary Emergency Contact: Harley Grady Address: [address] [place] [address] of [employer] Relation: Spouse MEDICATIONS: Outpatient [...] Following IV injection of 4.4 mCi of sngzuwgnso-54n-Etzpvlij, anterior imaging of the abdomen was acquired [...] of Jerome Grady. documented in this encounter [facility] 10-24-2022 History of Present illness Narrative [facility] [place] PATIENT: Jerome Grady DATE / TIME: 10/24/22 [...] Her symptoms improved, but again recurred around [place]. It seemed to be exacerbated by PO [...] and Sexual Activity Drug Use Never Occupation: [employer] Marital status: Support person (if other than spouse): Extended Emergency Contact Information Primary Emergency Contact: Harley Grady Address: [address] [place] [address] of [employer] Relation: Spouse MEDICATIONS: Outpatient [...] of Jerome Grady. documented in this encounter [facility] 09-19-2022 Evaluation + Plan note Associated [...] vs gerd Will order lipase and US [facility] 09-19-2022 Instructions Cony Jordan MD - [...] to control the problem with antacids or snpw-mdi-dpehdie medicine. You can also make lifestyle changes [...] with your medicine. Your doctor may recommend oyng-hxo-ewejrld medicine. For mild or occasional indigestion, antacids, such as Tums, Gaviscon, Mylanta, or Maalox, may help. Your doctor also may recommend ofqa-ahw-nutbwyo acid reducers, such as famotidine (Pepcid AC), [...] Log into your personal health record on [email or web address] and enter T927 in the Education box to learn more about Gastroesophageal Reflux Disease (GERD): Care Instructions. Current as of: March 19, 2022 Content Version: 13.4 [employer]. Care instructions adapted under license by your healthcare professional. If you have questions about a medical condition or this instruction, always ask your healthcare professional. [employer] disclaims any warranty or liability for your use of this information. documented in this encounter [facility] 09-19-2022 Miscellaneous Notes Associated Problem(s): Abdominal [...] lipase and US documented in this encounter [facility] 09-19-2022 History of Present illness Narrative [...] effects of the medications. Cony Jordan MD [facility] [address] [facility] [address] [facility] [address] Dept: [phone] Subjective Chief Complaint Patient presents with Abdominal [...] given: Not Answered documented in this encounter [facility] Biliary colic- Primary Calculus of [...] Primary Acute tonsillitis documented in this encounter [facility] Work Phone: Reason for Referral Specialty Diagnoses / Procedures Referred By Contac t Referred To Contact Diagnoses Abdominal pain, unspecified abdominal location Procedures US Abdomen Limited Study Cony Jordan MD [id number] [place] [address] Phone: [phone] Referral ID Status Reason Start Date Expiration Date Visits Requested Visits Authorized [id number] Authorized Patient Preference 09/19/2022 09/19/2023 1 1 Specialty Diagnoses / Procedures Referred By Contac t Referred To Contact General Surgery Diagnoses Biliary colic Cony Jordan MD [address] [place] [address] Ethel Meredith MD [address] [address] Referral ID Status Reason Start Date Expiration Date V isits Requested Visits Authorized [id number] Authorized 09/20/2022 09/20/2023 1 1 Specialty Diagnoses / Procedures Referred By Contac t Referred To Contact Radiology Diagnoses Biliary colic Procedures NM Hepatobiliary With Ejection Fraction Ethel Meredith MD [address] [address] Referral ID Status Reason Start Date Expiration Date V isits Requested Visits Authorized [id number] Authorized 10/24/2022 10/24/2023 4 4 Summary Purpose [...] Diagnoses Biliary colic Cony Jordan MD [id number] Ethel Meredith MD [address] [address] Referral ID Status Reason Start Date Expiration Date Visits Re quested Visits Authorized [id number] Closed 09/20/2022 09/20/2023 1 1 Reason Comments Follow-up HIDA scan Reason Comments Follow-up cholecystectomy Reason Comments Cough Reason Comments URI SORE THROAT, HEADACH E, CONGESTION X 4 DAYS 36 WEEKS Care Teams (unrecognized sec tion and content) Solar Manager Relationship Specialty Start Date End Date Cony Jordan MD [id number] PCP - General Internal Medicine 09/19/22 Solar Manager Relationship Specialty Start Date End Date Cony Jordan MD [address] [place], [place] [id number] PCP - General Internal Medicine 09/19/22 Solar Manager Relationship Specialty Start Date End Date Cony Jordan MD [address] [place], [place] [id number] PCP - General Internal Medicine 09/19/22 Solar Manager Relationship Specialty Start Date End Date Cony Jordan MD [address] [place] [address] PCP - General Internal Medicine 09/19/22 Solar Manager Relationship Specialty Start Date End Date Cony Jordan MD [address] [place], [place] [id number] PCP - General Internal Medicine 09/19/22 Solar Manager Relationship Specialty Start Date End Date Cony Jordan MD [address] [place] [address] PCP - General Internal Medicine 09/19/22 Cony Jordan MD [address] [place], [place] [id number] PCP - ARPAN Attributed Provider - [employer] 11/14/22 10/13/50 Solar Manager Relationship Specialty Start Date End Date Cony Jordan MD [address] [facility] [place] [address] PCP - General 10/03/22 INFORMATION SOURCE (unrecogn ized section and content) DATE CREATED AUTHOR AUTHOR'S ORGANIZ ATION 12/06/2022 [facility] DATE CREATED AUTHOR AUTHOR'S ORGANIZ ATION 04/11/2023 [facility] DATE CREATED AUTHOR AUTHOR'S ORGANIZ ATION 06/23/2023 [facility] DATE CREATED AUTHOR AUTHOR'S ORGANIZ ATION 10/13/2023 [facility] FOR RECORDS PERTAINING TO PATIENTS WHO [...] BE BASED ON THE PRIMARY CLINICAL RECORDS. [facility] [employer] [facility]. provides no warranty or guarantee of the accuracy or completeness of information in this document.
[2023-10-19] MEDS: CHLORHEXIDINE GLUC 2% CLOTH 1 EACH TOWELETTE TOPICAL ×2 (16:12→22:58)
[2023-10-19] MEDS: 0.9% Saline Lock 10 ML Syringe IV (16:12)
[2023-10-19] MEDS: miSOPROStol 25 MCG TABLET VAGINAL (16:17)
[2023-10-19 16:19] LABS: Hematocrit 42.2 % (37-47); Mean Corp Hgb Conc 33.2 g/dL (32-36); Mean Corpuscular Hgb 28.9 pg (27.0-32.0); Mean Corpuscular Volume 87.2 fL (81-99); Mean Platelet Vol. 10.8 fl (6.2-12.0); Platelet Count 248 K/mm3 (150-450); RBC Distribution Width CV 15.1 % (11.6-14.6); RBC Distribution Width SD 48.3 fl (35.1-43.9); Red Blood Count 4.84 M/mm3 (4.2-5.4); White Blood Count 14.3 K/mm3 (4.4-11.0)
[2023-10-19 16:35] LABS: AST(SGOT) 25 U/L (15-37); Alanine Aminotransfer ALT/SGPT 28 U/L (13-56); Creatinine, Serum 0.65 mg/dL (0.55-1.02); EST Glomerular Filtration Rate 118 mL/min (>60); Est Glom Filt Rate - Afr Amer 143 mL/min (>60); Estimated Creatinine Clearance 115.24 ml/min; Uric Acid 5.4 mg/dL (2.6-6.0)
[2023-10-19 16:37] LABS: Protein, Urine (Random) < 6.0 mg/dL (<11.9)
--- NOTE | 2023-10-19 17:00 | HP.PCM.OB_ITS ---
HPI - General General Date of Admission: 10/19/23 Date of Service: 10/19/23 HPI Narrative JEROME GRADY, is a 22 F 36.6 weeks who presented to unit for second dose of Celestone secondary to elevated blood pressures and right upper quadrant pain yesterday. Had severe range blood pressure today. Dr Amaya consulted and decission made to admit and induce for pre eclampsia. Repeat PIH labs with admission labs. Maternal Data Information KAMRYN Calculator Estimated Delivery Date Method Current WG Current Estimate 11/10/23 Ultrasound #1 36w 6d Other Estimates 11/06/23 LMP (Certain) 37w 3d Final KAMRYN: 11/10/23 Final KAMRYN Source: US >20 weeks Gestational age: 36.6 PFSH PFSH Medical History Ovarian cyst Home Medications vitamin#30 30 mg iron-10 mg iron-folic acid 1 mg-omg3 capsule cap PO 04/03/23 [History Last Taken 10/19/23 08:00 1 cap] Allergy/AdvReac Type Severity Reaction Status Date / Time No Known Allergies Allergy Verified 10/19/23 15:00 Family History Father Diabetes Surgical History Status post cholecystectomy Social History household members: significant other number of children: 0 current occupational status: employed current occupation: [employer] history of recent travel: No sexually active: Yes Smoking Status: Never smoker alcohol intake: current alcohol intake frequency: a few times a month substance use type: does not use what type of physical activity do you participate in: none seatbelt use: always do you feel safe at home: Yes additional social history: - [place] History 1 Elective abortions Hx Para 0 Spontaneous abortions Hx # Term Pregnancies Ectopic pregnancies Hx # Pregnancies Multiple births # of living children Visit Details Expected Delivery Route/Plan Labor Preferences- CB/BF classes: enc labor support person: Harley labor intervention preferences: pain management options preferred: epidural cut cord/dad catch: unsure : yes PP control planned: [] discussed possible routes of delivery and associated risks: [] special requests: [] Plans Covid status: declined Flu vaccine: at work Tdap vaccine: given 28wks Rhogam: NA LARC form signed: yes movement and labor precautions reviewed. Problem list reviewed and updated with the most current plan of care details and appropriate orders placed. Relevant counseling for the gestational age provided. Continue routine care and follow up unless otherwise noted in visit notes/problem list details OB Flowsheet Initial Weight: 219 lb Date -?-?-?-?-?-?-?-?-?-?-?-?- EGA Weight BP Urine Prot -?-?-?-?-?-?-?-?-?-?-?-?- Glucose FHR FuHt Pres Dilation -?-?-?-?--?-?-?-?-?-?-?-?- Effaced St Visit Note 04/03/23 -?-?-?-?-?-?-?-?-?-?-?-?- 8w 3d 219 lb 6 oz (+6 oz) 135/82 -?-?-?-?-?-?-?-?-?-?-?-?- 168 -?-?-?-?-?-?-?-?-?-?-?-?- KW-CRL not cons with LMP. JV scanned 05/01/23 -?-?-?-?-?-?-?-?-?-?-?-?- 12w 3d 217 lb 4 oz (-1 lb 12 oz) 127/82 -?-?-?-?-?-?-?-?-?-?-?-?- 155 -?-?-?-?-?-?-?-?-?-?-?-?- LC- had spotting on saturday, none since. +FHT. desires NIPT. discussed and declines afp. recollected gc/ct and urine culture. reviewed nob labs. 05/29/23 -?-?-?-?-?-?-?-?-?-?--?-?- 16w 3d 221 lb 4 oz (+2 lb 4 oz) 125/84 Negative -?-?-?-?-?-?-?-?-?-?-?-?- Negative 149 -?-?-?-?-?-?-?-?-?-?-?-?- MH-No VB. Feels well. denies concerns 06/26/23 -?-?-?-?-?-?-?-?-?-?-?-?- 20w 3d 221 lb 4 oz (+2 lb 4 oz) 226 lb 8 oz (+7 lb 8 oz) 134/84 Negative -?-?-?-?-?-?-?-?-?-?-?-?- Negative 150 -?-?-?-?-?-?-?-?-?-?-?-?- LC-no vb/carmenza michael us. concerned with wt gain. reviewed and encouraged healthy choices/body movement. 07/24/23 -?-?-?-?-?-?-?-?-?-?-?-?- 24w 3d 232 lb 8 oz (+13 lb 8 oz) 118/80 Negative -?-?-?-?-?-?-?-?-?-?-?-?- Negative 147 -?-?-?-?-?-?-?-?-?-?-?-?- MH-No VB or crajorge ying. Is now feeling movement/ant placenta. Larc 08/21/23 -?--?-?-?-?-?-?-?-?-?-?-?- 28w 3d 242 lb (+23 lb) 135/86 Negative -?-?-?-?-?-?-?-?-?-?-?-?- Negative 143 -?-?-?-?-?-?-?-?-?-?-?-?- JV- tdap today. kick counts reviewed. has anterior placenta. no complaints 09/04/23 -?-?-?-?-?-?-?-?-?-?-?-?- 30w 3d 245 lb 6 oz (+26 lb 6 oz) 128/86 Negative -?-?-?-?-?-?-?-?-?-?-?-?- Negative 140 30 -?-?-?-?-?-?-?-?-?-?-?-?- Sm- no vb lof g ood fm no regular ctx 09/18/23 -?-?-?-?-?-?-?-?-?-?-?-?- 32w 3d 252 lb 6 oz (+33 lb 6 oz) 141/95 129/85 Negative -?-?-?-?-?-?-?-?-?-?-?-?- Negative 145 33 Cephalic -?-?-?-?-?-?-?-?-?-?-?-?- JV- no lof, vagi nal bleeding, or dec fm. rpt bp was normal. has some burning with urination. sending urine for culture. 10/02/23 -?-?-?-?-?-?--?-?-?-?-?-?- 34w 3d 255 lb 8 oz (+36 lb 8 oz) 128/83 Negative -?-?-?-?-?-?-?-?-?-?-?-?- Negative 141 35 -?-?-?-?-?-?-?-?-?-?-?-?- JV- urine ca was neg. no lof, vaginal bleeding, or dec fm. 10/16/23 -?-?-?-?-?-?-?-?-?-?-?-?- 36w 3d 257 lb 6 oz (+38 lb 6 oz) 128/86 Negative -?-?-?-?-?-?-?-?-?-?-?-?- Negative 150 36 Cephalic 0 -?-?-?-?-?-?-?-?-?-?-?-?- LC- no vb/lof/ct x. good fm. gbs collected. NST FHR Rate Baby A Baseline: 135 Variability:: Moderate Accelerations:: 15 x 15 Decelerations:: None NST Reactive:: Yes FHR Category:: Category I Uterine Activity:: irregular ROS Constitutional Constitutional: Denies change in weight, fatigue, fever(s), headache(s), poor appetite or weakness Eyes Eyes: Denies blurry vision, change in vision, floaters, seeing flashes or spots in vision ENT HEENT: Denies dizziness, headache(s), loss taste/smell or sore throat Cardiovascular Cardiovascular: Denies chest pain, dizziness, dyspnea, irregular heart rhythm, l ightheadedness, palpitations or rapid heart rate Respiratory/Chest Respiratory/Chest: Denies change in mental status, chest tightness, cough, dyspnea or breast pain Gastrointestinal Gastrointestinal: Denies anorexia, chewing difficulty, constipation, diarrhea or weight changes Genitourinary Genitourinary: Denies difficulty urinating, dysuria, flank pain, genital pain, urinary frequency or urinary urgency Musculoskeletal Musculoskeletal: Denies back pain, difficulty walking, extremity pain, joint pain, muscle cramps or muscle weakness Integumentary Integumentary: Denies lesions or unusual bruising Neurologic Neurologic: Denies abnormal movements, abnormal speech, dizziness, numbness, seizure-like activity, syncope or weakness Psychiatric Psychiatric: Denies behavioral changes, change in appetite, confusion, depression, homicidal ideation, suicidal ideation or suicidal thoughts Endocrine Endocrinology: Denies excessive sweating, polydipsia or polyuria Hematologic/Lymphatic Hematologic/Lymphatic: Denies anemia Allergic/Immunologic Allergic/Immunologic: Denies itchy eyes, lip swelling, throat swelling, tongue swelling or wheezing Vital Signs Vital Signs Vital Signs: 10/19/23 15:00 10/19/23 15:00 10/19/23 15:02 Temperature Temperature Source Pulse Rate 126 H 123 H Blood Pressure 157/90 H BP Systolic 157 BP Diastolic 90 Pulse Ox 10/19/23 15:02 10/19/23 15:03 10/19/23 15:03 Temperature Temperature Source Pulse Rate 129 H Blood Pressure 164/82 H BP Systolic 164 BP Diastolic 82 Pulse Ox 98 10/19/23 15:07 10/19/23 15:07 10/19/23 15:12 Temperature Temperature Source Pulse Rate 111 H 124 H Blood Pressure BP Systolic BP Diastolic Pulse Ox 98 10/19/23 15:12 10/19/23 15:14 10/19/23 15:14 Temperature Temperature Source Pulse Rate 121 H Blood Pressure 139/87 H BP Systolic 139 BP Diastolic 87 Pulse Ox 98 10/19/23 15:17 10/19/23 15:17 10/19/23 17:45 Temperature Temperature Source Pulse Rate 114 H Blood Pressure 139/75 H BP Systolic 139 BP Diastolic 75 Pulse Ox 98 10/19/23 17:45 10/19/23 17:46 10/19/23 17:46 Temperature Temperature Source Temporal Pulse Rate 104 H 102 H Blood Pressure BP Systolic BP Diastolic Pulse Ox 10/19/23 17:46 10/19/23 17:46 10/19/23 18:44 Temperature 100.0 F H Temperature Source Pulse Rate Blood Pressure 142/83 H BP Systolic 142 BP Diastolic 83 Pulse Ox 98 10/19/23 18:44 10/19/23 18:44 10/19/23 18:44 Temperature 98.2 F Temperature Source Temporal Pulse Rate 104 H Blood Pressure BP Systolic BP Diastolic Pulse Ox 10/19/23 19:15 10/19/23 19:15 10/19/23 19:18 Temperature 97.8 F Temperature Source Tympanic Pulse Rate Blood Pressure 135/88 H BP Systolic 135 BP Diastolic 88 Pulse Ox 10/19/23 19:18 10/19/23 19:18 10/19/23 20:14 Temperature Temperature Source Pulse Rate 112 H Blood Pressure 126/65 H BP Systolic 126 BP Diastolic 65 Pulse Ox 97 10/19/23 20:14 10/19/23 20:15 10/19/23 20:14 Temperature 98.4 F Temperature Source Pulse Rate 101 H Blood Pressure BP Systolic BP Diastolic Pulse Ox 67 Weight Weight: 257 lb Body Mass Index (BMI) 44.1 Physical Exam Const alert, oriented x3 and no apparent distress General Appearance: cooperative Orientation / Consciousness: awake HEENT normocephalic Neck full ROM Lymph Lymphatic: no lymphadenopathy noted Chest inspection of chest normal Resp normal respiratory effort and normal air movement Effort and Inspection: able to speak in complete sentences and symmetric chest movement GI soft to palpation and non-tender Inspection: gravid Palpation: soft; Negative for tender external exam normal Back/Spine normal to inspection Extremity normal to inspection and full ROM Skin no rashes or lesions noted Psych mental status grossly normal Appearance: grossly normal Speech: normal speech Labs Labs Labs: Blood Type B POSITIVE Antibody Screen NEGATIVE Hct 42.2 % (37-47) Hgb 14.0 g/dL (12.0-15.0) Pap Smear Negative Syphilis Total Ab Non-reactive Rubella IgG Antibody Reactive (Nonreactive) Hep Bs Antigen Non-Reactive (Nonreactive) Hepatitis C Antibody Non-Reactive (Nonreactive) Chlamydia DNA (CATRACHO) Negative (Negative) N.gonorrhoeae DNA (CATR[place]O) Negative (Negative) HIV 1&2 Antibody Non-Reactive (Nonreactive) Glucose 1 Hr 50 gm 101 mg/dL (70-140) Group B Strep DNA Negative (Negative) Assessment & Plan (1) Preeclampsia: (2) Encounter for induction of labor: COMMENT: 36.6, celestone given, Preeclampsia PLAN: Patient presents IOL, plan management for with cytotec, possible carreon bulb, pitocin/AROM. Pain management: plans epidural. GBS negative. Management of any complications: preeclampsia, obesity I have reviewed the [facility] and made any clinically relevant updates. Dr Amaya consulted prior to admission and agrees with above assessment and plan. (3) Gestational hypertension: COMMENT: pre e labs nl, celestone, 24 hr urine, bps at home. consider 37 week IOL if elevated with 2nd dose of celestone- consult with SM (4) Obesity affecting : QUALIFIERS: Trimester: second trimester Obesity type affecting : unspecified obesity Qualified Code(s): O99.212 - Obesity complicating , second trimester COMMENT: passed early GCT. enc healthy weight (5) Supervision of high risk , antepartum: COMMENT: [id number] KAMRYN 11/06/23, boy, atul Spouse Harley (6) : QUALIFIERS: Weeks of gestation: 36 weeks Qualified Code(s): Z3A.36 - 36 weeks gestation of COMMENT: normal anatomy scan. carrier ntd screening negative. NIPT low risk. gbs neg Charges/Coding Multi Select Codes Urinary/Genital Urinary/Genital CPT Codes: No Charge
[2023-10-19 17:47] LABS: Syphilis Antibodies Non-reactive
--- NOTE | 2023-10-19 21:09 | PN_ITS ---
Progress Note Coping well with contractions feeling mild cramping with dose of cytotec current tracing: FHT: 135 Moderate variability reactive no decelerations category I tracing [place]: 3-6 minute mild Contractions Membranes: intact SVE:3/70/-2 A/P: Continue with position changes Start and titrate pitocin per protocol Epidural per anesthesia Plan for AROM after comfortable with epidural Anticipate Dr Amaya aware of above assessment and agrees with plan of care Assessment & Plan Assessment/Plan (1) Encounter for induction of labor: (2) Preeclampsia: (3) Gestational hypertension: (4) Obesity affecting : QUALIFIERS: Trimester: second trimester Obesity type affecting : unspecified obesity Qualified Code(s): O99.212 - Obesity complica ting , second trimester (5) Supervision of high risk , antepartum: (6) : QUALIFIERS: Weeks of gestation: 36 weeks Qualified Code(s): Z3A.36 - 36 weeks gestation of Multi Select Codes Urinary/Genital Urinary/Genital CPT Codes: No Charge
[2023-10-19] MEDS: Oxytocin 15 Units/NS 250ml 15 UNITS/250 ML IV.SOLN 2 UNITS IV (21:15)
[2023-10-19] MEDS: Lactated Ringers 1,000 ML 50 ML IV (21:15)
[2023-10-19] MEDS: LACTATED RINGERS 500 ML 999 ML IV (21:59)
[2023-10-19] MEDS: fentaNYL-bupivacaine (epidural) 100 ML BAG EPIDURAL (22:59)
[2023-10-20] VITALS (32 sets, daily range): BP systolic 94–141; BP diastolic 50–84; PULSE 81–125; RESP 16–18; TEMP 36.2–37.3; O2SAT 95–100
--- NOTE | 2023-10-20 01:22 | PN_ITS ---
Progress Note comfortable with epidural current tracing: FHT: 135 Moderate variability reactive no decelerations category I tracing [place]: 2-3 minutes Contractions Membranes:AROM for clear fluid SVE:4/70/-2 A/P: Continue with position changes Titrate pitocin per protocol Epidural per anesthesia SVE in [address] Amaya aware of above assessment and agrees with plan of care Assessment & Plan Assessment/Plan (1) Encounter for induction of labor: (2) Preeclampsia: (3) Gestational hypertension: (4) Obesity affecting : QUALIFIERS: Trimester: second trimester Obesity type affecting : unspecified obesity Qualified Code(s): O99.212 - Obesity complicating , second trimester (5) Supervision of high risk , antepartum: (6) : QUALIFIERS: Weeks of gestation: 36 weeks Qualified Code(s): Z3A.36 - 36 weeks gestation of Multi Select Codes Urinary/Genital Urinary/Genital CPT Codes: No Charge
[2023-10-20] MEDS: fentaNYL-bupivacaine (epidural) 100 ML BAG EPIDURAL ×4 (03:03→18:35)
[2023-10-20] MEDS: Lactated Ringers 1,000 ML 200 ML IV ×4 (03:57→19:53)
--- NOTE | 2023-10-20 06:50 | PCM.PN.BLA ---
Progress Note comfortable with epidural current tracing: FHT: 130 Moderate variability reactive no decelerations category I tracing [place]: 2-3minute Contractions Membranes:ruptured remains clear SVE:5/80/-1 A/P: Continue with position changes Titrate pitocin per protocol Epidural per anesthesia recheck SVE in 3-4 hours Pineda cath placed for bladder empting Anticipate Dr Amaya aware of above assessment and agrees with plan of care Assessment & Plan Assessment/Plan (1) Encounter for induction of labor: (2) Preeclampsia: (3) Gestational hypertension: (4) Obesity affecting : QUALIFIERS: Trimester: second trimester Obesity type affecting : unspecified obesity Qualified Code(s): O99.212 - Obesity complicating , second trimester (5) Supervision of high risk , antepartum: (6) : QUALIFIERS: Weeks of gestation: 36 weeks Qualified Code(s): Z3A.36 - 36 weeks gestation of Multi Select Codes Urinary/Genital Urinary/Genital CPT Codes: No Charge
[2023-10-20] MEDS: CHLORHEXIDINE GLUC 2% CLOTH 1 EACH TOWELETTE TOPICAL ×2 (10:30→21:30)
[2023-10-20] MEDS: LACTATED RINGERS 500 ML 999 ML IV (12:21)
--- NOTE | 2023-10-20 13:57 | PN_ITS ---
Progress Note comfortable with epidural current tracing: FHT: 130 Moderate variability reactive no decelerations category I tracing [place]: 4-6 minutes Contractions Membranes:ruptured remains clear SVE:/-1 reviewed tracing abnormalities since last note: At 1240 reviewed strip from home and found moderate variability with recurrent late for approx 40 minutes. Called into unit and discussed with RN. had 2 position changes and fluid bolus. Order given to turn off pitocin and place FSE. Collaboration with Dr Amaya at this time for Cat II FHT tracing. Upon arriving to unit shortly after, FHT is Cat I and decision made to restart pitocin. Bedside ultrasound attempted to verify OP vs OA positioning. Unable to locate eye sockets on US. A/P: Continue with position changes Titrate pitocin per protocol Epidural per anesthesia Anticipate Dr Amaya aware of above assessment and agrees with plan of care Assessment & Plan Assessment/Plan (1) Encounter for induction of labor: (2) Preeclampsia: (3) Gestational hypertension: (4) Obesity affecting : QUALIFIERS: Trimester: second trimester Obesity type affecting : unspecified obesity Qualified Code(s): O99.212 - Obesity complicating , second trimester (5) Supervision of high risk , antepartum: (6) : QUALIFIERS: Weeks of gestation: 36 weeks Qualified Code(s): Z3A.36 - 36 weeks gestation of Multi Select Codes Urinary/Genital Urinary/Genital CPT Codes: No Charge
[2023-10-20] MEDS: LACTATED RINGERS 500 ML 900 ML IV (17:52)
--- NOTE | 2023-10-20 18:30 | PN_ITS ---
Progress Note comfortable with epidural current tracing: FHT: 135 Moderate variability reactive random variables and late decelerations category II tracing [place]: 4-5 minute Contractions Membranes: ruptured at 0115 for clear fluid. remains clear SVE: reviewed tracing abnormalities since last note: collaboration with Dr Amaya at this time for Cat II FHT tracing with moderate variability. Resolved with fluid bolus and position changes. will continue to monitor. overall reassuring. A/P: Continue with position changes Titrate pitocin per protocol Epidural per anesthesia Possible amnioinfusion if variables become recurrent Anticipate If unchanged SVE at 1999, to evaluate Dr Amaya aware of above assessment and agrees with plan of care Assessment & Plan Assessment/Plan (1) Encounter for induction of labor: (2) Preeclampsia: (3) Gestational hypertension: (4) Obesity affecting : QUALIFIERS: Trimester: second trimester Obesity type affecting : unspecified obesity Qualified Code(s): O99.212 - Obesity complicating , second trimester (5) Supervision of high risk , antepartum: (6) : QUALIFIERS: Weeks of gestation: 36 weeks Qualified Code(s): Z3A.36 - 36 weeks gestation of Multi Select Codes Urinary/Genital Urinary/Genital CPT Codes: No Charge
[2023-10-20] MEDS: Oxytocin 15 Units/NS 250ml 15 UNITS/250 ML IV.SOLN 10 UNITS IV (18:36)
[2023-10-20] MEDS: Amnioinfusion- 0.9% NS 1,000 ML IV.SOLN. 1000 ML INTRA-UTER (19:31)
[2023-10-20] MEDS: Sodium Chloride 0.65% 1 SPRAY SPRAY.BTL 2 SPRAY NASAL (19:38)
[2023-10-20] MEDS: Sodium Citrate/Citric Acid 30 ML UDC PO (21:29)
[2023-10-20] MEDS: Acetaminophen 500 MG Tablet PO (21:29)
--- NOTE | 2023-10-20 21:41 | EX.PCM.OBRPT ---
Assessment & Plan (1) Occiput posterior presentation of fetus: (2) Arrest of dilation, delivered, current hospitalization: COMMENT: Unclear if due to presentation versus CPD (3) Encounter for induction of labor: COMMENT: 36.6, celestone given, Preeclampsia (4) Preeclampsia: (5) Gestational hypertension: COMMENT: pre e labs nl, celestone, 24 hr urine, bps at home. consider 37 week IOL if elevated with 2nd dose of celestone- consult with SM (6) Obesity affecting : QUALIFIERS: Obesity type affecting : unspecified obesity Trimester: second trimester Qualified Code(s): O99.212 - Obesity complicating , second trimester COMMENT: passed early GCT. enc healthy weight (7) Supervision of high risk , antepartum: COMMENT: [id number] KAMRYN 11/06/23, atul carvajal Spouse Harley (8) : QUALIFIERS: Weeks of gestation: 36 weeks Qualified Code(s): Z3A.36 - 36 weeks gestation of COMMENT: normal anatomy scan. carrier ntd screening negative. NIPT low risk. gbs neg (9) delivery delivered: COMMENT: KW/[facility] OP presentation 7 cm dilation 37 GHTN wei pollard Maternal Data Information KAMRYN Calculator Estimated Delivery Date Method Current WG Current Estimate 11/10/23 Ultrasound #1 37w 0d Other Estimates 11/06/23 LMP (Certain) 37w 4d Final KAMRYN Source: LMP Gestational age: 37 Details Operative Information Date of Procedure: 10/20/23 Pre-Operative Diagnosis: see a/p diagnoses Post-Operative Diagnosis: same Indications Narrative: surgeon: Lata Amaya MD Classification: REGGIE Procedure Type: low transverse health careers instructor #1: Carloz Maier Type of Anesthesia: Epidural Special Medications: none Drain: Pineda to straight drain Estimated Blood Loss: 900 Fluids Replaced: crystalloid Procedure Start Time: 21:58 Findings Description of Procedure: Patient presented with persistent elevated blood pressures and was induced for gestational hypertension. Patient underwent Cytotec then Pitocin and a Pineda bulb. Patient underwent rupture membranes and Pitocin augmentation. Patient experienced an arrest of dilation for 8 and half hours with adequate contractions for most of that time. The head was found to be in the direct OP presentation which was unable to be reduced or alleviated. Patient was counseled for proceeding with primary low-transverse . It was unclear whether the arrest of dilation was due to the mentation or true CPD. The patient was placed in the dorsal supine position with leftward tilt. Patient was prepped and draped in the normal sterile fashion. Pfannenstiel skin incision was made with the scalpel and carried through to the underlying layer of fascia with the scalpel. Fascia was nicked in the midline and the incision extended laterally. The rectus bellies were dissected off superiorly and inferiorly with out complication both sharply and bluntly. The peritoneum was entered digitally. The incision was stretched and a low transverse uterine incision was made with the scalpel. The 's head was delivered atraumatically followed by the anterior and posterior shoulders without complication the rest of the delivered. pelvis was noted to be very narrow on exam. The cord was clamped and cut and the was handed off to awaiting nurse. The placenta was delivered spontaneously immediately following and was noted to be intact and have a three-vessel cord. The uterus was exteriorized cleared of all clots and debris, and the incision was closed in a single layer closure using #1 Monocryl. The ovaries and fallopian tubes were noted to be within normal limits. The uterus was returned to the maternal abdomen and gutters were cleared of all clots and debris. The peritoneum was closed with 3-0 Monocryl in a running fashion. Fascia was closed with 0 PDS in a running fashion. Subcutaneous tissue was copiously irrigated and the skin was closed with 3-0 Monocryl in a subcuticular fashion. Mepilex dressing was applied without complication. Patient was taken to recovery in stable condition. It was discussed with the patient that based on the clinical information obtained during this encounter, her narrow pelvis during surgery, combined with her history, at this time I would recommend cesareans for future deliveries if further pregnancies are desired. Placental Delivery Description: Spontaneous Placenta Disposition: [facility] Cord Vessel Description: 3 Vessels Delayed Cord Clamping: Yes Complications Risks of Surgery Discussed w/Patient: Bleeding, Infection, Need for Future C-Sections and Injury to surrounding structure(s) including bowel and bladder Complications: none Admit VTE Documentation VTE Present on Admission: No VTE Mechan Device Prophylaxis: SCD's Procedures Urinary/Genital [id number]: [id number] Delivery [facility]
[2023-10-20] MEDS: Cefazolin 2 GM in 0.9% Normal Saline (100mL Bag) 100 ML IV (21:50)
[2023-10-20] MEDS: Azithromycin 500 MG in Dextrose 5%-Water (250mL Bag) 250 ML 250 MG IV (22:04)
--- NOTE | 2023-10-20 22:37 | DCINST_ITS ---
Discharge Instructions Diet Discharge Diet: No restrictions Activity Discharge Activity: May Not Drive (for 2 weeks or while taking narcotic pain medications.), May Shower and May Take a Tub Bath (in 7 days) May shower in (days): 0 May resume sexual activity in: 4-6 weeks Weight Bearing Status: Full weight bearing Lifting Restrictions: 20 pounds Dressing / Incision Call your doctor if your incision/area has: Continuous Slow Oozing, Sudden Increased Bleeding, Increased Pain/ Swelling, Increased Redness and Foul Smelling Discharge Call your doctor if you observe: Fever of 101 or Higher and Using more than 1 pad per hour (for 2 hours) Suture Line Care: Avoid Pulling/Pushing and Avoid Pinching/Bending Cleanse incision/area with: Soap & Water and Keep Dressing Clean & Dry Follow Up Care Please Follow Up With: Lata Amaya MD When: Call [phone] to make an appointment for an incision check in 1-2 weeks. Test Results: Test results from this visit will be discussed in further detail at your follow- up appointment, if applicable. Discharge Plan Admission Admit Date/Time: 10/19/23 15:20 Attending Provider: Lata Amaya Discharge Orders/Prescriptions Prescriptions: New oxycodone-acetaminophen [Percocet] 5-325 mg tablet 1 tab PO Q6H PRN (Reason: pain) 7 Days Qty: 10 0RF naproxen [naproxen] 500 mg tablet 500 mg PO BID PRN PRN (Reason: Pain) Qty: 30 1RF No Action PNV #[id number] 30 mg iron-10 mg iron-1 mg capsule PO Disposition Disposition (needs filled in before D/C Order can be placed): Home, Self Care
[2023-10-20] MEDS: Oxytocin 15 Units/NS 250ml 15 UNITS/250 ML IV.SOLN 83 UNITS IV (23:00)
[2023-10-20] MEDS: Ketorolac 30 MG/ML Syringe IV (23:50)
[2023-10-20] MEDS: 0.9% Saline Lock 10 ML Syringe IV (23:50)
[2023-10-21] VITALS (12 sets, daily range): BP systolic 108–135; BP diastolic 56–85; PULSE 83–110; RESP 16–18; TEMP 36.3–37.3; O2SAT 94–98
[2023-10-21] MEDS: Lactated Ringers 1,000 ML 100 ML IV (02:05)
[2023-10-21] MEDS: Acetaminophen 500 MG Tablet 1000 MG PO ×4 (03:09→21:58)
[2023-10-21 04:34] LABS: Hematocrit 31.5 % (37-47); Hemoglobin 10.1 g/dL (12.0-15.0); Mean Corp Hgb Conc 32.1 g/dL (32-36); Mean Corpuscular Hgb 28.4 pg (27.0-32.0); Mean Corpuscular Volume 88.5 fL (81-99); Mean Platelet Vol. 9.7 fl (6.2-12.0); Platelet Count 193 K/mm3 (150-450); RBC Distribution Width CV 15.3 % (11.6-14.6); RBC Distribution Width SD 50.1 fl (35.1-43.9); Red Blood Count 3.56 M/mm3 (4.2-5.4); White Blood Count 18.1 K/mm3 (4.4-11.0)
[2023-10-21] MEDS: Ketorolac 30 MG/ML Syringe IV ×3 (05:56→18:14)
[2023-10-21] MEDS: 0.9% Saline Lock 10 ML Syringe IV ×3 (09:59→18:14)
[2023-10-21] MEDS: Senna/Docusate Sodium 1 Tablet PO (09:59)
[2023-10-21] MEDS: Enoxaparin 40 MG/0.4 ML Syringe SC ×2 (09:59→21:58)
[2023-10-22] MEDS: Naproxen 500 MG Tablet PO ×2 (00:04→08:18)
[2023-10-22 02:15] VITALS: BP 125/78; PULSE 85; RESP 16; TEMP 36.3; O2SAT 96
[2023-10-22] MEDS: Acetaminophen 500 MG Tablet 1000 MG PO ×2 (04:43→10:41)
--- NOTE | 2023-10-22 07:26 | PCM.PN.OB ---
Subjective Subjective Patient doing well without complaints. Tolerating PO. Ambulating and voiding without difficulty. Feeding well. Denies chest pain, shortness of breath, calf pain/swelling, fevers, chills, lightheadedness. Objective Data Objective Data Vital Signs: Vital Signs Temp Pulse Resp BP Pulse Ox O2 Del Method 97.4 F L 85 16 125/78 H 96 Room Air 10/22/23 02:15 10/22/23 02:15 10/22/23 02:15 10/22/23 02:15 10/22/23 02:15 10/22/23 02:15 Oxygen Delivery Method Room Air Weight: 257 lb Body Mass Index (BMI) 44.1 Intake & Output: Intake and Output for Last 24 Hours 10/20/23 10/21/23 10/22/23 23:59 23:59 23:59 Intake Total 5634.76 / 5634.76 1041.67 / 1041.67 Output Total 5750 / 5750 2300 / 2300 Balance -115.24 / -115.24 -1258.33 / -1258.33 Lab / Micro Data Attestation: I reviewed the patient's lab results. 10/21/23 04:28 10/19/23 16:05 ROS Constitutional Constitutional: Reports systems reviewed and no addt'l complaints, except as documented; Denies anorexia or headache(s) Cardiovascular Cardiovascular: Reports systems reviewed and no addt'l complaints, except as documented; Denies dizziness, dyspnea, nausea or tachypnea Respiratory/Chest Respiratory/Chest: Reports systems reviewed and no addt'l complaints, except as documented; Denies cough, dyspnea, shortness of breath at rest or tachypnea Gastrointestinal Gastrointestinal: Reports systems reviewed and no addt'l complaints, except as documented; Denies abdominal pain, constipation or nausea Genitourinary Genitourinary: Reports systems reviewed and no addt'l complaints, except as documented; Denies burning urination, difficulty urinating, dysuria, urinary frequency or urinary incontinence Musculoskeletal Musculoskeletal: Reports systems reviewed and no addt'l complaints, except as documented Integumentary Integumentary: Reports systems reviewed and no addt'l complaints, except as documented Neurologic Neurologic: Reports systems reviewed and no addt'l complaints, except as documented; Denies abnormal speech, dizziness or headache(s) Psychiatric Psychiatric: Reports systems reviewed and no addt'l complaints, except as documented Endocrine Endocrinology: Reports systems reviewed and no addt'l complaints, except as documented Hematologic/Lymphatic Hematologic/Lymphatic: Reports systems reviewed and no addt'l complaints, except as documented Physical Exam Const alert, oriented x3 and no apparent distress Neck full ROM Resp normal respiratory effort, normal air movement and no retractions Effort and Inspection: able to speak in complete sentences and symmetric chest movement GI soft to palpation Inspection: incision intact Bladder / Kidney Exam: bladder normal to palpation Uterus Palpation: uterus fundus firm Extremity normal to inspection and full ROM Psych mental status grossly normal, thought process normal and cooperative Assessment & Plan (1) delivery delivered: COMMENT: [facility] OP presentation 7 cm dilation 37 GHTN boy atul Charges/Coding Multi Select Codes Urinary/Genital Urinary/Genital CPT Codes: No Charge
[2023-10-22 09:30] VITALS: BP 138/95; PULSE 88; RESP 16; TEMP 36.1; O2SAT 96
[2023-10-22] MEDS: Senna/Docusate Sodium 1 Tablet PO (10:41)
[2023-10-22] MEDS: Enoxaparin 40 MG/0.4 ML Syringe SC (10:41)
--- NOTE | 2023-10-22 11:16 | CASEMGMT ---
Social Work Assessment Labor and Delivery Unit Patient Address: [address] [place] [address] Phone number: [phone] Date of Referral: 10/19/23 Time of Referral:? 1637 Referred By: Kadie Acevedo Date of Intervention: ??10/22/23 Time of Intervention:? 1030 Reason for Referral:? maternal mother Jamshid completed chart review and acknowledges social work consult entered due to maternal grandmother having history of substance use/addiction. Sw presented to bedside and introduced self to mother of baby (MOB- Joanie) and father of baby (FOB- Harley). Sw explained reason for sw involvement and support at this time. Sw completed psychosocial assessment and provided parents with support and list of community resources local to them. History obtained from: medical records, MOB and FOB Household composition: Currently residing in the family home is MOB, FOIram and now baby Patient's parent/guardian status:? ?Parents state that they met online and have been together for 5 years. No issues or concerns of domestic violence or intimate partner violence. Medical History: ?OTTONIEL is 22 year old female who is 1, para 0- now 1 following labor and delivery of . MOB delivered baby via at 36 weeks gestation on 10/20/23. Baby boy, named Fernando Douglas, was born weighing 6lb 11oz and his apgars were 8 and 9 at one and five minutes of life respectfully. Baby will be followed by Dr. Calvillo for pediatrics. Educational Status:? FOIram obtained a Bachelors degree in teaching and OTTONIEL obtained her associates degree. No concerns with reading, learning or comprehension reported. Financial Status: Both parents are gainfully employed outside of the home. 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 Both parents are able to take time off of work now that baby has been born. Supplies:??Parents have obtained all necessary baby supplies, including: car seat, safe sleep space, clothes, diapers, wipes and a breast pump. Childcare/Caregiver(s):?OTTONIEL states that when both parents have returned to work maternal grandma will be able to provide childcare. Transportation:?Both parents have their drivers license and reliable means of transportation. No transportation barriers at this time. Programs/Agencies Involved: ??Parents are not connected to any community resources at this time. ? Children Services/Legal Issues:??? no history of involvement, no issues or concerns warranting a referral to be made at this time. Behavioral Health Issues: ??Mental Health History:??FOB and MOB deny any mental health diagnoses or struggles. ? Substance Use History: MOB denies substance use prior to and during . ?? Family History:??MOB states that her mom and her sister both have been diagnosed with BiPolar and struggle with alcoholism. MOB states that neither family member will be responsible for providing childcare for them. ?? Drug Screens: ??NO urine screens observed in chart review. Family/Social Stressors:? Parents deny any stressors or concerns at this time. Support Systems: Parents state that paternal grandparents are their biggest supports at this time. Depression/Shaken Baby/Safe Sleeping:? Sw educated parents on signs and symptoms of baby blues and depression and anxiety. MOB expressed understanding. Sw educated parents on shaken baby prevention and ABCs of safe sleep. Parents expressed understanding. ASSESSMENT:? MOB and baby admitted following labor and delivery. MOB and FOB both observed to provide appropriate and loving hands on care of baby. Parent engaged in assessment and answered questions openly. Parents maintained eye contact with sw throughout conversation. Parents asked appropriate questions and thanked sw for education provided and support. Parents have safe housing, all necessary baby supplies and adequate supports in place. PLAN:? MOB and baby to be discharged when medically ready. ?No other services requested or indicated. Juan Lugo, CRUISE CONSULTANT, CAR SEAT UPHOLSTERER
--- NOTE | 2023-10-22 12:46 | DCINST_ITS ---
Discharge Instructions Diet Discharge Diet: No restrictions Activity Discharge Activity: Return to Normal Activity May shower in (days): 0 May resume sexual activity in: 4-6 weeks Weight Bearing Status: Full weight bearing Dressing / Incision Call your doctor if your incision/area has: Continuous Slow Oozing, Sudden Increased Bleeding, Increased Pain/ Swelling, Increased Redness and Foul Smelling Discharge Call your doctor if you observe: Fever of 101 or Higher and Using more than 1 pad per hour (for 2 hours) Suture Line Care: Avoid Pulling/Pushing and Avoid Pinching/Bending Cleanse incision/area with: Soap & Water and Keep Dressing Clean & Dry Follow Up Care Please Follow Up With: Lata Amaya MD When: Please call the office to schedule your follow up appointment in 6 weeks. If you had high blood pressure please call to schedule an appointment in 2 weeks. Test Results: Test results from this visit will be discussed in further detail at your follow- up appointment, if applicable. Discharge Plan Admission Admit Date/Time: 10/19/23 15:20 Attending Provider: Lata Amaya Discharge Orders/Prescriptions Prescriptions: New oxycodone-acetaminophen [Percocet] 5-325 mg tablet 1 tab PO Q6H PRN (Reason: pain) 7 Days Qty: 10 0RF naproxen [naproxen] 500 mg tablet 500 mg PO BID PRN PRN (Reason: Pain) Qty: 30 1RF No Action PNV #[id number] acid-[id number] 30 mg iron-10 mg iron-1 mg capsule PO Disposition Disposition (needs filled in before D/C Order can be placed): Home, Self Care
[2023-10-22 13:43] VITALS: BP 133/88; PULSE 97; RESP 16; TEMP 36.4
--- NOTE | 2023-10-25 10:32 | PCM.DC.SUM ---
Providers Date of Admission: 10/19/23 Date of Discharge: 10/22/23 Reason For Visit: C SECTION Diagnosis Discharge Diagnosis (1) delivery delivered: Status: Acute Code(s): O82 - Encounter for delivery without indication Medications at Discharge Home Medications vitamin#30 30 mg iron-10 mg iron-folic acid 1 mg-omg3 capsule cap PO 04/03/23 naproxen 500 mg tablet 500 mg PO BID PRN PRN Pain #30 tabs 10/20/23 oxycodone-acetaminophen 5 mg-325 mg tablet (Percocet) 1 tab PO Q6H PRN pain 7 days #10 tabs 10/20/23 Hospital Course Operations section Summary of Care Provided Hospital Course: Admitted for IOL and then had P C/S for OP presentation and failure to progress by Dr Amaya. Physical Exam Narrative see previous note for 10/22/23 Const alert, oriented x3 and no apparent distress Neck full ROM Resp normal respiratory effort, normal air movement and no retractions Effort and Inspection: able to speak in complete sentences and symmetric chest movement GI soft to palpation Inspection: incision intact Bladder / Kidney Exam: bladder normal to palpation Uterus Palpation: uterus fundus firm Extremity normal to inspection and full ROM Psych mental status grossly normal, thought process normal and cooperative Weight / BMI Weight Weight: 257 lb Body Mass Index (BMI) 44.1 ABG / Lab / Microbiology Data 10/21/23 04:28 10/19/23 16:05 D/C Instructions Discharge Diet: No restrictions May shower in (days): 0 May resume sexual activity in: 4-6 weeks Weight Bearing Status: Full weight bearing Call your doctor if your incision/area has: Continuous Slow Oozing, Sudden Increased Bleeding, Increased Pain/ Swelling, Increased Redness and Foul Smelling Discharge Call your doctor if you observe: Fever of 101 or Higher and Using more than 1 pad per hour (for 2 hours) Suture Line Care: Avoid Pulling/Pushing and Avoid Pinching/Bending Cleanse incision/area with: Soap & Water and Keep Dressing Clean & Dry Please Follow Up With: Lata Amaya MD When: Please call the office to schedule your follow up appointment in 6 weeks. If you had high blood pressure please call to schedule an appointment in 2 weeks. Meaningful Use Info Meaningful Use Diagnoses (Choose all that apply): None applicable Discharge Plan Admission Admit Date/Time: 10/19/23 15:20 Attending Provider: Lata Amaya Instructions Additional Instructions / Restrictions: Tylenol 1000mg after 1630 Discharge Orders/Prescriptions Prescriptions: New oxycodone-acetaminophen [Percocet] 5-325 mg tablet 1 tab PO Q6H PRN (Reason: pain) 7 Days Qty: 10 0RF naproxen [naproxen] 500 mg tablet 500 mg PO BID PRN PRN (Reason: Pain) Qty: 30 1RF No Action PNV #[id number] acid-omega3 30 mg iron-10 mg iron-1 mg capsule PO Disposition Disposition (needs filled in before D/C Order can be placed): Home, Self Care Charges/Coding Multi Select Codes Urinary/Genital Urinary/Genital CPT Codes: No Charge
--- NOTE | 2023-10-26 07:50 | NURSING ---
10/25/23 1325: Follow up phone call questions asked in person at visit. Pt. reports feeling sore, but that overall recovery is going well. Is now exclusively pumping. Encouragement and support given. No s+s reported.
== END 2023-10-22 14:00 | disposition home or self-care (01) | DRG 786 ==
LOC: WP 15:24 → WPOUT 10-22 07:54
PROVIDERS: Advanced Practice Midwife; Admitting Provider Obstetrics & Gynecology; Visit Provider Obstetrics & Gynecology
DX: O62.1 Secondary uterine inertia (principal); O60.14X0 Preterm labor third trimester with preterm delivery third trimester, not applicable or unspecified; O14.94 Unspecified pre-eclampsia, complicating childbirth; E66.8 Other obesity; O64.0XX0 Obstructed labor due to incomplete rotation of fetal head, not applicable or unspecified; O99.214 Obesity complicating childbirth; O13.4 Gestational [pregnancy-induced] hypertension without significant proteinuria, complicating childbirth; Z37.0 Single live birth; Z3A.36 36 weeks gestation of pregnancy
CPT/HCPCS: 59025; 59050; 76815; 82565; 82570; 84156; 84450; 84460; 84550; 85027; 86780; 86850; 86900; 86901; 99221; J7030; J7120; A4216; G0378; J0702; J2405

== ENCOUNTER → 2023-11-29 | Outpatient (CLI) | payer OTHER, SELFPAY ==
[2023-12-05 21:22] LABS: HPV Reflexed? NOT INDICATED
== END | disposition home or self-care (01) ==
LOC: LABSPEC 16:54
PROVIDERS: Referring Provider Obstetrics & Gynecology; Visit Provider Obstetrics & Gynecology
DX: Z12.4 Encounter for screening for malignant neoplasm of cervix (principal)
CPT/HCPCS: 88175; G0145

== ENCOUNTER 2024-03-24 12:00 | Outpatient (RCR) | payer OTHER, SELFPAY ==
--- NOTE | 2024-02-18 15:17 | HP.PTEVAL ---
Patient's Visit Information Visit Information Visit Information: JEROME GRADY is a 23 year old F referred to Physical Therapy by CLAUDETTE Deras with a diagnosis of LEVATOR SPASM AND DYSPAREUNIA. Date of Evaluation: 02/18/24 Physical Therapist: Brisa Hong PT, Cert MDT Visit Plan Frequency: 1x/Week Duration: 2-4 Months Plan: MANUAL PF THERAPY FOR STM, LENGTHENING/RELAXATION AND TRIGGER POINT RELEASE. PELVIC FLOOR DOWN TRAINING. CORE STRENGTHENING. POSTURE TRAINING. HEP. (PATIENT IS REQUESTING 1 VS 2 TIMES A WK FOR THERAPY). 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 HAVE TRIED OTC LUBRICANT Coughing/sneezing/straining: NEGATIVE FOR PAIN AND URINARY INCONTINENCE How long can you delay the need to urinate: LONG NEEDED Prolapse (Falling out feeling): NO Ability to stop urine flow: YES Ability to initiate urine stream: YES Dyspareunia: YES Bowel Incontinence: NO Accidents: NO Unexplained weight loss: NO Imaging: NONE PMH/Recent major surgery: UNREMARKABLE. Objective Objective: THIS PATIENT AMBULATES INDEP'LY INTO PT WITHOUT ANY GROSS DEVIATIONS NOTED. SHE STANDS WITH ANTERIOR PELVIC TILT. POOR SITTING POSTURE. Sensory deficit: DEBRA LE LIGHT TOUCH SENSATION IS GROSSLY INTACT AND SYMMETRICAL ROM deficit: DEBRA LE'S WFL Motor deficit: DEBRA LE'S 5/5. PELVIC FLOOR STRENGTH 5/5 TESTED VAGINALLY. Dural Signs: NEGATIVE DEBRA LE'S. Lumbar mvmt loss: flex - MIN ext - NIL R SG - MIN L SG - NIL Core strength: FAIR Palpation: NO EXTERNAL PELVIC PAIN WITH PALPATION. INTERNAL VAGINAL MANUAL PELVIC FLOOR MUSCLE PALPATION REVEALS TENDERNESS AND TRIGGER POINTS THROUGHOUT LEFT > RIGHT ESPECIALLY THE LEVATOR ANI REGION. MILD INCREASED RESTING TONE IN PELVIC FLOOR. OTHER: PATIENT REPORTS SHE DOES NOT DO ANYTHING FOR EXERCISE. FUNCTIONAL SCREEN: Incontinence Impact Questionnaire Score: 0 Urogenital Distress Inventory Score: 0 Goals Goal 1:: PATIENT WILL BE ABLE TO HAVE SEXUAL RELATIONS WITH HER WITHOUT PAIN. Goal Time Frame: 8-12 Weeks Goal 2:: PATIENT WILL HAVE INCREASED CORE STRENGTH TO GRADE OF GOOD. Goal Time Frame: 8-12 Weeks Goal 3:: PATIENT WILL BE ABLE TO MAINTAIN PROPER POSTURE CONTROL THROUGHOUT PT SESSION WITHOUT CUEING. Goal Time Frame: 6-8 Weeks Goal 4:: PATIENT WILL BE INDEP WITH HEP AND SELF CARE TECHNIQUES FOR CONTINUED IMPROVEMENT ONCE FORMAL PHYSICAL THERAPY CONCLUDES. Goal Time Frame: 8-12 Weeks Rehabilitation Potential Physical Therapy Diagnosis: TENDERNESS AND MULTIPLE TRIGGER POINTS IN PELVIC FLOOR MUSCLES L>R WITH MILD INCREASED RESTING TONE. DECREASED CORE STRENGTH AND POOR POSTURE. Rehabilitation Potential: Good Anticipated Interventions Patient/Client Instruction: Educate patient on: Condition, Plan of Care and Risk Factors For the Purpose of:: To improve self management Therapeutic Exercise to Include: Strength training, Postural training and Relaxation training For the Purpose of:: To decrease pain, To improve muscle performance and motor function, To increase tolerance to activity/condition/position, To improve ability of physical actions for home/community/work/leisure and To decrease soft tissue restriction Manual Therapy Techniques to Include: Trigger point massage and Soft tissue mobilization For the Purpose of:: To decrease pain and To decrease soft tissue restriction Text: Thank you for the opportunity to evaluate your patient. For Medicare and Medicare HMO plans, please review the plan of care and approve it. It will need to be FAXED BACK to us at [phone] for Medicare purposes. For Medicare only, by signing this I certify the plan of care. Please let me know if there are questions or concerns regarding this plan of care. Physician Signature: Date:
--- NOTE | 2024-04-07 12:29 | HP.PT.NRP ---
Patient Information Patient Information: JEROME GRADY was seen in my office for initial evaluation on 02/18/24. The following Plan of Care was established for this patient: POC Established Initial Frequency: 1x/Week Initial Duration: 2-4 Months Anticipated Interventions Patient/Client Instruction: Educate patient on: Condition, Plan of Care and Risk Factors For the Purpose of:: To improve self management Therapeutic Exercise to Include: Strength training, Postural training and Relaxation training For the Purpose of:: To decrease pain, To improve muscle performance and motor function, To increase tolerance to activity/condition/position, To improve ability of physical actions for home/community/work/leisure and To decrease soft tissue restriction Manual Therapy Techniques to Include: Trigger point massage and Soft tissue mobilization For the Purpose of:: To decrease pain and To decrease soft tissue restriction Last Seen Last Seen: This patient was last seen in our office . Pertinent comments regarding their Physical therapy will appear below: PATIENT LEFT A MESSAGE STATING SHE IS DOING BETTER AND WOULD LIKE TO DISCONTINUE PT. SHE CANCELLED HER REMAINING SCHEDULED VISITS. At this point I will be discontinuing this patient from physical therapy. I would be happy to see this patient again in the future if found appropriate by the physician. Thank you! Brisa Hong, PT, Cert MDT
== END 2024-03-24 19:00 | disposition home or self-care (01) ==
LOC: PT 12:00
PROVIDERS: Referring Provider Nurse Practitioner Family; Visit Provider Nurse Practitioner Family
DX: M62.838 Other muscle spasm (principal); N94.10 Unspecified dyspareunia
CPT/HCPCS: 97140; 97161; 97530

== ENCOUNTER → 2025-07-09 | Outpatient (CLI) | payer OTHER, SELFPAY ==
[2025-07-09 17:47] LABS: hCG Titer Quant., Serum 3408 mIU/mL (<9 non-preg)
== END | disposition home or self-care (01) ==
LOC: MTLAB 12:43
PROVIDERS: Referring Provider Advanced Practice Midwife; Visit Provider Advanced Practice Midwife
DX: O26.859 Spotting complicating pregnancy, unspecified trimester (principal); Z3A.00 Weeks of gestation of pregnancy not specified
CPT/HCPCS: 36415; 84702

== ENCOUNTER → 2025-07-11 | Outpatient (CLI) | payer OTHER, SELFPAY ==
--- OUTSIDE RECORDS SUMMARY | 2025-05-26 09:46 | XMS RPT_ITS ---
Author Name Auto Generated Organization OH[facility] Care Team Providers Care Byproducts Extractor Name Role Phone SAL ABERNATHY Attending Unavailable SAL ABERNATHY Primary Care Unavailable PROBLEMS DATE TYPE CONDITION / CODE ATTENDING STATUS [facility] 05/26/2025 Admitting diagnosis Encounter for general adult medical examination without abnormal findings / Z00.00(ICD-10) SAL ABERNATHY Active [facility] 11/28/2022 Admitting diagnosis Obesity, unspecified / E66.9(ICD-10) SAL ABERNATHY Active [facility] 05/26/2025 Admitting diagnosis Abnormal finding of blood chemistry, unspecified / R79.9(ICD-10) SAL ABERNATHY Active [facility] 05/26/2025 Admitting diagnosis Encounter for screening for human immunodeficiency virus (HIV) / Z11.4(ICD-10) SAL ABERNATHY Active [facility] 05/26/2025 Admitting diagnosis Encounter for screening for other viral diseases / Z11.59(ICD-10) SAL ABERNATHY Active [facility] PROCEDURES No Procedure Records Found RESULTS PROGRESS Observed: 05/27/2025 2:09 PM Status: COMPLETED Source: [facility] Please call patient and let her know her lab results are normal except for mildly elevated cholesterol. This will improve with diet change; less greasy, fatty, fried foods and carbohydrates, regular cardiovascular exercise, and weight loss. Her exercise goal is 150 minutes weekly of cardiovascular exercise. We will recheck her labs in 1 year. AUTHENTICATED BY SAL ABERNATHY, ON 05/27/2025 14:09:54 LIPID PANEL WITH REFLEX TO DIRECT LDL Collected: 05/26/2025 10:34 AM Status: F Source: [facility] Order Comment: FASTING:NO FASTING: NO TYPE CODE TESTS RESULT OUT OF RANGE REFERENCE UNITS LAB [id number] CHOLESTEROL, TOTAL 232 High <200 mg/dL LAB [id number] HDL CHOLESTEROL 60 Normal > OR = 50 mg/dL LAB [id number] TRIGLYCERIDES 131 Normal <150 mg/dL LAB [id number] LDL-CHOLESTEROL 146 High mg/dL (calc) Result Comment: Reference ra nge: <100 Desirable range <100 mg/dL for primary prevention; <70 mg/dL for patients with CHD or diabetic patients with > or = 2 CHD risk factors. LDL-C is now calculated using the Shanna calculation, which is a validated novel method providing better accuracy than the Friedewald equation in the estimation of LDL-C. Augustine SS et al. GUNJAN. 2013;310(19): 3289-6478 (http://education.MSI/faq/MDE773) LAB [id number] CHOL/HDLC RATIO 3.9 Normal <5.0 (calc) LAB [id number] NON HDL CHOLESTEROL 172 High <130 mg/dL (calc) Result Comment: For patients with diabetes plus 1 major ASCVD risk factor, treating to a non-HDL-C goal of <100 mg/dL (LDL-C of <70 mg/dL) is considered a therapeutic option. Performed By: #### 62152, 36 127, 6399, 26060, 8472, 496, 14855 #### [facility] [address], [address] [place] [phone] Iuss Master Analyst: Kam Pérez MD HIV 1/2 ANTIGEN/ANTIBODY,FOU RTH GENERATION W/RFL Collected: 05/26/2025 10:34 AM Status: F Source: [facility] TYPE CODE TESTS RESULT OUT OF RANGE REFERENCE UNITS LAB [id number] HIV FINAL INTERPRETATION Result Comment: HIV Negative HIV-1 antigen and HIV-1/HIV-2 antibodies were not detected. There is no laboratory evidence of HIV infection. LAB [id number] HIV AG/AB, 4TH GEN NON-REACTIVE Normal NON-REACTI VE Performed By: #### 89582, 36 127, 6399, 75902, 8472, 496, 72430 #### [facility] [address], [address] [place] [phone] Iuss Master Analyst: Kam Pérez MD COMPREHENSIVE METABOLIC PANE L W/ANION GAP Collected: 05/26/2025 10:34 AM Status: F Source: [facility] TYPE CODE TESTS RESULT OUT OF RANGE REFERENCE UNITS LAB [id number] GLUCOSE 92 Normal 65-139 mg/dL Result Comment: Non-fasting reference interval LAB [id number] UREA NITROGEN (BUN) 18 Normal 7-25 mg/dL LAB [id number] CREATININE 0.59 Normal 0.50-0.96 mg/dL LAB [id number] EGFR 127 Normal > OR = 60 mL/min/1 .73m2 LAB [id number] SODIUM 138 Normal 135-146 mmol/L LAB [id number] POTASSIUM 4.3 Normal 3.5-5.3 mmol/L LAB [id number] CHLORIDE 104 Normal 98-110 mmol/L LAB [id number] CARBON DIOXIDE 25 Normal 20-32 mmol/L LAB [id number] ELECTROLYTE BALANCE 9 Normal 7-17 mmol/L (calc) LAB [id number] CALCIUM 9.2 Normal 8.6-10.2 mg/dL LAB [id number] PROTEIN, TOTAL 7.2 Normal 6.1-8.1 g/dL LAB [id number] ALBUMIN 4.3 Normal 3.6-5.1 g/dL LAB [id number] BILIRUBIN, TOTAL 0.2 Normal 0.2-1.2 mg/dL LAB [id number] ALKALINE PHOSPHATASE 56 Normal 31-125 U/L LAB [id number] AST 19 Normal 10-30 U/L LAB [id number] ALT 18 Normal 6-29 U/L Performed By: #### 65868, 36 127, 4591, 95890, 8472, 496, 24184 #### [facility] [address], [address] [place] [phone] Iuss Master Analyst: Kam Pérez MD CBC (INCLUDES DIFF/PLT) Collected: 05/14 10:34 AM Status: F Source: [facility] TYPE CODE TESTS RESULT OUT OF RANGE REFERENCE UNITS LAB [id number] WHITE BLOOD CELL COUNT 7.0 Normal 3.8-10.8 Thousand /uL LAB [id number] RED BLOOD CELL COUNT 4.51 Normal 3.80-5.10 Million/ uL LAB [id number] HEMOGLOBIN 13.5 Normal 11.7-15.5 g/dL LAB [id number] HEMATOCRIT 41.4 Normal 35.0-45.0 % LAB [id number] MCV 91.8 Normal 80.0-100.0 fL LAB [id number] MCH 29.9 Normal 27.0-33.0 pg LAB [id number] MCHC 32.6 Normal 32.0-36.0 g/dL Result Comment: For adults, a slight decrease in the calculated MCHC value (in the range of 30 to 32 g/dL) is most likely not clinically significant; however, it should be interpreted with caution in correlation with other red cell parameters and the patient's clinical condition. LAB [id number] RDW 12.8 Normal 11.0-15.0 % LAB [id number] PLATELET COUNT 261 Normal 140-400 Thousand /uL LAB [id number] MPV 9.8 Normal 7.5-12.5 fL LAB [id number] ABSOLUTE NEUTROPHILS 3367 Normal 5069-1207 cells/uL LAB [id number] ABSOLUTE LYMPHOCYTES 2898 Normal 850-3900 cells/uL LAB [id number] ABSOLUTE MONOCYTES 644 Normal 200-950 cells/uL LAB [id number] ABSOLUTE EOSINOPHILS 70 Normal 15-500 cells/uL LAB [id number] ABSOLUTE BASOPHILS 21 Normal 0-200 cells/uL LAB [id number] NEUTROPHILS 48.1 Normal % LAB [id number] LYMPHOCYTES 41.4 Normal % LAB [id number] MONOCYTES 9.2 Normal % LAB [id number] EOSINOPHILS 1.0 Normal % LAB [id number] BASOPHILS 0.3 Normal % Performed By: #### 64779, 36 127, 6399, 70071, 8472, 496, 67126 #### [facility] [address], [address] [place] [phone] Iuss Master Analyst: Kam Pérez MD HEPATITIS C AB W/REFL TO HCV RNA, QN, PCR Collected: 05/26/2025 10:34 AM Status: F Source: [facility] TYPE CODE TESTS RESULT OUT OF RANGE REFERENCE UNITS LAB [id number] HEPATITIS C ANTIBODY NON-REACTIVE Normal NON-REACTIVE Result Comment: HCV antibody was non-reactive. There is no laboratory evidence of HCV infection. In most cases, no further action is required. However, if recent HCV exposure is suspected, a test for HCV RNA (test code 41055) is suggested. For additional information please refer to http://education.SocialWire.Intrinsity/faq/MPI33x2 (This link is being provided for informational/ educational purposes only.) Performed By: #### 07638, 36 127, 6399, 61403, 8472, 496, 20824 #### [facility] [address], [address] [place], [place] [id number] Iuss Master Analyst: Kam Pérez MD TSH W/REFLEX TO FT4 Collected: 05/26/20 10:34 AM Status: F Source: [facility] TYPE CODE TESTS RESULT OUT OF RANGE REFERENCE UNITS LAB [id number] TSH W/REFLEX TO FT4 1.85 Normal mIU/L Result Comment: Reference Ra nge > or = 20 Years 0.40-4.50 Ranges First trimester 0.26-2.66 Second trimester 0.55-2.73 Third trimester 0.43-2.91 Performed By: #### 79955, 36 127, 6399, 95411, 8472, 496, 37625 #### [facility] [address], [address] [place] [address] Iuss Master Analyst: Kam Pérez MD HEMOGLOBIN A1C Collected: 10:34 AM Status: F Source: [facility] TYPE CODE TESTS RESULT OUT OF RANGE REFERENCE UNITS LAB [id number] HEMOGLOBIN A1c 5.5 Normal <5.7 % Result Comment: For the purp ose of screening for the presence of diabetes: <5.7% Consistent with the absence of diabetes 5.7-6.4% Consistent with increased risk for diabetes (prediabetes) > or =6.5% Consistent with diabetes This assay result is consistent with a decreased risk of diabetes. Currently, no consensus exists regarding use of hemoglobin A1c for diagnosis of diabetes in children. According to [place] Diabetes Association (ADA) guidelines, hemoglobin A1c <7.0% represents optimal control in non- diabetic patients. Different metrics may apply to specific patient populations. Standards of Medical Care in Diabetes(ADA). Performed By: #### 18305, 36 127, 6399, 20715, 8472, 496, 72228 #### [facility] [address], [address] [place], [place] [phone] Iuss Master Analyst: Kam Pérez MD PROGRESS Observed: 05/26/2025 10:00 AM Status: COMPLETED Source: [facility] Assessment/Plan: Well adult exam Healthy 24-year-old female, non-smoker. She has discontinued OCP and is planning to attempt at this time. - Discussed healthy lifestyle including well-balanced diet and regular cardiovascular exercise, goal 150 minutes weekly - Up-to-date on Pap smear, completed at [facility] 3 to 4 months ago. Will obtain records. - Routine labs ordered today - PHQ-9 score 0 today - Follow-up in 1 year or sooner if needed Subjective: Jerome Grady is a 24 y.o. female Chief Complaint Patient presents with Establish Care Gap Closure (Health Maintenance) HIV Screening Never -LAB Hepatitis C Screening-LAB Pap Smear [facility] Wellness Visit due on-TODAY Depression Screening/Follow-Up (PHQ-2/9)-TODAY Patient presents to establish care. Previous PCP Dr. Beltre. 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 Review of Systems Objective: PACU Vitals 05/26/25 0951 BP: 120/86 Pulse: 74 Resp: 18 Temp: 98.4 degrees F (36.9 degrees C) SpO2: 97% PainSc: 0-No pain Physical Exam Constitutional: General: She is not in acute distress. Appearance: Normal appearance. She is not ill-appearing, toxic-appearing or diaphoretic. HENT: Head: Normocephalic and atraumatic. Right Ear: Tympanic membrane, ear canal and external ear normal. There is no impacted cerumen. Left Ear: Tympanic membrane, ear canal and external ear normal. There is no impacted cerumen. Nose: Nose normal. No congestion or rhinorrhea. Mouth/Throat: Mouth: Mucous membranes are moist. Pharynx: Oropharynx is clear. No oropharyngeal exudate or posterior oropharyngeal erythema. Eyes: General: No scleral icterus. Right eye: No discharge. Left eye: No discharge. Pupils: Pupils are equal, round, and reactive to light. Cardiovascular: Rate and Rhythm: Normal rate and regular rhythm. Heart sounds: No murmur heard. No friction rub. No gallop. Pulmonary: Effort: Pulmonary effort is normal. No respiratory distress. Breath sounds: Normal breath sounds. No stridor. No wheezing, rhonchi or rales. Abdominal: General: Abdomen is flat. Bowel sounds are normal. There is no distension. Palpations: Abdomen is soft. Tenderness: There is no abdominal tenderness. There is no guarding. Musculoskeletal: General: No tenderness or signs of injury. Cervical back: Neck supple. No tenderness. No muscular tenderness. Right lower leg: No edema. Left lower leg: No edema. Lymphadenopathy: Cervical: No cervical adenopathy. Skin: General: Skin is warm and dry. Coloration: Skin is not jaundiced or pale. Findings: No rash. Neurological: General: No focal deficit present. Mental Status: She is alert. Deep Tendon Reflexes: Reflexes normal. Psychiatric: Mood and Affect: Mood normal. For any new medications prescribed today, patient was educated about indications for the medication, how to take the medication and potential side effects of the medications. My ongoing relationship with Jerome Grady requires continued responsibility and cognitive effort of being the focal point for all services related to chronic condition(s). Sal Abernathy DO AUTHENTICATED BY SAL ABERNATHY, ON 05/26/2025 10:43:39 ALLERGIES DATE TYPE / CODE NAME / CODE REACTION SEVERITY SOURCE Miscellaneous Allergy/949856288(SNOME D CT) NO KNOWN ALLERGIES [facility] ENCOUNTERS ADMIT/DISCHARGE ACCOUNT NUMBER ADMITTING ENCOUNTER CLASS LOCATION SOURCE 05/26/2025/ [id number] Ambulatory Building:[facility] PAYERS ENCOUNTER GUARANTOR PAYER SUBSCRIBER SOURCE 05/26/2025 JEROME OBREGONOB: [id number] [place], [place] [address]Rwh: ~[phone] ([phone]) Primary Insurance:AETGeodruid icy Number: [id number] e Date:5364-05-27[address] [address]OA: MONITOR JAKOBJERMAINEB: [id number] [place], [place] [address]Rbf: () [facility] 05/26/2025 Secondary Insurance:AEClaude icy Number: [id number] e Date:5541-73-57[address] [address]HA: MONITOR BEVB: [id number] [place], [place] [address]Jfk: () [facility]
[2025-07-11 13:48] LABS: hCG Titer Quant., Serum 6268 mIU/mL (<9 non-preg)
== END | disposition home or self-care (01) ==
LOC: LAB 12:57
PROVIDERS: Visit Provider Advanced Practice Midwife
DX: O26.859 Spotting complicating pregnancy, unspecified trimester (principal); Z3A.00 Weeks of gestation of pregnancy not specified
CPT/HCPCS: 36415; 84702

== ENCOUNTER → 2025-08-05 | Outpatient (CLI) | payer OTHER, SELFPAY ==
[2025-08-05 17:24] LABS: Creatinine, Urine (random) 41.40 mg/dL (28.00-217.00); Protein, Urine (Random) < 6.0 mg/dL (0.0-12.0); Protein:Creat Ratio UNABLE TO CALCULATE mg/g CRE (0-200)
[2025-08-09 05:07] LABS: Chlamydia By Nucleic Acid AMP Negative (Negative); Gonococcus By Nucleic Acid AMP Negative (Negative)
== END | disposition home or self-care (01) ==
LOC: LABSPEC 15:13
PROVIDERS: Visit Provider Advanced Practice Midwife
DX: O99.210 Obesity complicating pregnancy, unspecified trimester (principal); Z87.59 Personal history of other complications of pregnancy, childbirth and the puerperium; Z3A.00 Weeks of gestation of pregnancy not specified
CPT/HCPCS: 82570; 84156; 87086; 87088; 87491; 87591